=== PATIENT | female | born 1955 | race Two or more races ===

== ENCOUNTER 2025-05-04 07:28 | Inpatient (IN) | payer BC, MEDICAID ==
[~2025-05-04] VITALS: Ht 162.6 cm; Wt 102.3 kg
[2025-05-04] VITALS (8 sets, daily range): BP systolic 98–102; BP diastolic 51–55; PULSE 82–98; RESP 16–22; TEMP 97.8–98.6; O2SAT 90–98
--- NOTE | 2025-05-04 08:12 | ED.PDOC ---
History of Present Illness HPI Comments 69-year-old female who is Wolof-speaking presents to the ER family and with a prior medical history of prediabetic, hypertension in the chief complaint of abdominal pain. Patient reports on having changed her high blood pressure medication, and the patient did not eat 5 days after the medication was changed so they change the back and still has not have an appetite. This whole occasion happened 3 weeks ago in the patient currently has epigastric nausea and diarrhea with bilateral pitting edema. Denies chills, fever, /V, SOB, CP. No other associated symptoms, modifiers, recent injuries or sick contacts present at this time. Chief Complaint: Abdominal Pain Time Seen by MD: 08:00 Reviewed Notes: Nurses Notes, Medications, Allergies Allergies: Coded Allergies: NO KNOWN ALLERGIES (Unverified , 05/04/25) Information Source: Patient, Friend Mode of Arrival: EMS Severity: Moderate Timing: Weeks Duration: Since onset Prehospital treatment: None Past Medical History PAST MEDICAL HISTORY: DM (Prediabetic), HTN Surgical History: Denies all surgeries SAFE AND VAULT INSTALLER History: No Pertinent SAFE AND VAULT INSTALLER History Family History Family History: Reviewed,noncontributory to illness, Unknown Social History Smoker: Non-Smoker Alcohol: Denies ETOH Use Drugs: Denies Drug Use Lives In: Home Constitutional: denies: chills, diaphoresis, fatigue, fever, malaise, sweats, weakness, others EENTM: denies: blurred vision, double vision, ear bleeding, ear discharge, ear drainage, ear pain, ear ringing, eye pain, eye redness, hearing loss, mouth pain, mouth swelling, nasal discharge, nose bleeding, nose congestion, nose pain, photophobia, tearing, throat pain, throat swelling, voice changes, others Respiratory: denies: cough, hemoptysis, orthopnea, SOB at rest, shortness of breath, SOB with excertion, stridor, wheezing, others Cardiovascular: denies: chest pain, dizzy spells, diaphoresis, Dyspnea on exertion, edema, irregular heart beat, left arm pain, lightheadedness, palpit ations, PND, syncope, others Gastrointestinal: reports: abdominal pain, diarrhea, nausea; denies: abdomen distended, blood streaked bowels, constipated, dysphagia, difficulty swallowing, hematemesis, melena, poor appetite, poor fluid intake, rectal bleeding, rectal pain, vomiting, others Genitourinary: denies: abnormal vagina bleeding, burning, dyspareunia, dysuria, flank pain, frequency, hematuria, incontinence, pain, , vagina discharge, urgency, others Neurological: denies: dizziness, fainting, headache, left sided numbness, left sided weakness, numbness, paresthesia, pre-existing deficit, right sided numbness, right sided weakness, seizure, speech problems, tingling, tremors, weakness, others Musculoskeletal: denies: back pain, gout, joint pain, joint swelling, muscle pain, muscle stiffness, neck pain, others Integumetry: denies: bruises, change in color, change in hair/nails, dryness, laceration, lesions, lumps, rash, wounds, others Allergic/Immunocompromised: denies: Difficulty Healing, Frequent Infections, Hives, Itching, others Hematologic/Lymphatic: denies: anemia, blood clots, easy bleeding, easy bruising, swollen glands, others Endocrine: denies: excessive hunger, excessive sweating, excessive thirst, excessive urination, flushing, intolerance to cold, intolerance to heat, unexplained weight gain, unexplained weight loss, others Psychiatric: denies: anxiety, bipolar disorder, depression, hopeless, panic disorder, schizophrenia, sleepless, suicidal, others All Other Systems: Reviewed and Negative Physical Exam General Appearance: Moderate Distress, Normal HEENT: Normal ENT Inspection, Pharynx Normal, TMs Normal Neck: Full Range of Motion, Non-Tender, Normal, Normal Inspection Respiratory: Chest Non-Tender, Lungs Clear, No Accessory Muscle Use, No Respiratory Distress, Normal Breath Sounds Cardiovascular: No Edema, No JVD, No Murmur, No Gallop, Normal Peripheral Pulses, Regular Rate/Rhythm Breast Exam: Deferred Gastrointestinal: No Organomegaly, Non Tender, No Pulsatile Mass, Normal Bowel Sounds, Soft Genitalia: Deferred Pelvic: Deferred Rectal: Deferred Extremities: No calf tenderness, Normal capillary refill, Normal inspection, Normal range of motion, Non-tender, Pedal edema, Swelling (Bilateral lower extremity) Musculoskeletal : Apperance: Normal Neurologic: Alert, senior designer/art director II-XII nml as Tested, No Motor Deficits, Normal Affect, Normal Mood, No Sensory Deficits Cerebellar Function: Normal Reflexes: Normal Skin: Dry, Normal Color, Warm Peripheral Pulses: 3+ Radial (R), 3+ Radial (L) Lymphatic: No Adenopathy Was a procedure done? Was a procedure done?: No Differential Dx Considerations may include: Gastroenteritis Electrolyte imbalance X-Ray, Labs, Meds, VS Vital Signs Date Time Temp Pulse Resp B/P (MAP) Pulse Ox O2 Delivery O2 Flow Rate FiO2 05/04/25 08:06 98 18 98 Room Air* 0 21 05/04/25 07:48 98.3 104 17 98/61 (73) 94 98.3 05/04/25 07:48 104 16 94 Room Air 05/04/25 07:37 98.9 98 18 140/84 (102) 98 98.9 Lab Test 05/04/25 08:13 Range/Units White Blood Count Pending Red Blood Count Pending Hemoglobin Pending Hematocrit Pending Mean Corpuscular Volume Pending Mean Corpuscular Hemoglobin Pending Mean Corpuscular Hemoglobin Concent Pending Red Cell Distribution Width Pending Platelet Count Pending Mean Platelet Volume Pending Neutrophils (%) (Auto) Pending Lymphocytes (%) (Auto) Pending Monocytes (%) (Auto) Pending Basophils (%) (Auto) Pending Neutrophils # (Auto) Pending Lymphocytes # (Auto) Pending Monocytes # (Auto) Pending Sodium Level Pending Potassium Level Pending Chloride Level Pending Carbon Dioxide Level Pending Anion Gap Pending Blood Urea Nitrogen Pending Creatinine Pending Glomerular Filtration Rate Calc Pending BUN/Creatinine Ratio Pending Serum Glucose Pending Calcium Level Pending Total Bilirubin Pending Aspartate Amino Transferase (AST) Pending Alanine Aminotransferase (ALT) Pending Alkaline Phosphatase Pending B-Type Natriuretic Peptide Pending Total Protein Pending Albumin Pending Lipase Pending Patient alert. Complaining of epigastric pain. Vitals stable. Answering questions. Has been having these symptoms for many weeks. Reviewed her history. Abdomen is soft. Bilateral lower extremity edema. Possible CHF. Explained to the family that she will be admitted for further workup. Explained to the patient. Time of 1ST Reevaluation: 08:30 Reevaluation 1ST: Unchanged Patient Education/Counseling: Diagnosis, Treatment, Prognosis Family Education/Counseling: Diagnosis, Treatment, Prognosis SEPSIS Sepsis Screen Date sepsis recognized/suspect: May 04, 2025 Time Sepsis recognized/suspect: 07 Recent Procedure: No On Antibiotic Therapy: No Respiratory Rate >20: No Heart Rate >90: Yes Temp<36 C (96.8 F) or >38.3 C: No SBP <90 or MAP <65 mmHG: No New Acute Mental Status Change: No Is the patient on CPAP, BIPAP,: No Physician Orders Complete Blood Count (05/04/25 08:06) Comprehensive Metabolic Panel (05/04/25 08:06) Lipase (05/04/25 08:06) Urinalysis (05/04/25 08:06) Ct Ab Pel Wo Con-No Oral Or Iv (05/04/25 08:06) B-Type Natriuretic Peptide (05/04/25 08:06) Chest Portable (05/04/25 08:06) Vital Signs Date Time Temp Pulse Resp B/P (MAP) Pulse Ox O2 Delivery O2 Flow Rate FiO2 05/04/25 08:06 98 18 98 Room Air* 0 21 05/04/25 07:48 98.3 104 17 98/61 (73) 94 98.3 05/04/25 07:48 104 16 94 Room Air 05/04/25 07:37 98.9 98 18 140/84 (102) 98 98.9 Laboratory Tests Test 05/04/25 08:13 White Blood Count Pending Departure 1 Departure Time of Disposition: 08:24 Impression: Primary Impression: Acute abdominal pain Additional Impressions: Gastritis Qualified Codes: K29.00 - Acute gastritis without bleeding CHF (congestive heart failure) Qualified Codes: I50.43 - Acute on chronic combined systolic (congestive) and diastolic (congestive) heart failure Disposition: ADMITTED INPATIENT Admit to: Med Surg Condition: Guarded Critical Care Note Critical Care Time?: No Stability Stability form required: No Heart Score Heart Score: Heart Score Response (Comments) Value History Slightly Suspicious 0 EKG Normal 0 Age >65 2 Risk Factors >3 or Hx ASHD 2 Troponin Normal limit 0 Total 4 I personally scribed for JULIO GONZALEZ MD ([email or web address]) on 05/04/25 at 08:12. Electronically submitted by Earl Kinney ([email or web address]). JULIO GONZALEZ MD May 04, 2025 08:12
[2025-05-04 08:26] LABS: Nucleated Red Blood Cells % 0.2 %
[2025-05-04 08:28] LABS: Hematocrit 39.8 % (36.0-46.0); Hemoglobin 13.0 g/dL (12.2-16.2); Mean Corpuscular Hemoglobin 27.0 pg (28.0-32.0); Mean Corpuscular Volume 82.6 fL (80.0-100.0)
[2025-05-04] MEDS: cefTRIAXone 1GM/50ML D5W 50 ML IV ONE (08:30)
[2025-05-04] MEDS: SODIUM CHLORIDE 0.9% 1,000 ML IV ONE ×2 (08:30)
--- NOTE | 2025-05-04 08:43 | DVH ---
CLINICAL INFORMATION: Abdominal pain. TECHNIQUE: Axial CT images of the abdomen and pelvis were obtained without IV contrast. Coronal and s agittal reformatted images were obtained, reviewed, and stored. Evaluation of the parenchymal organs is limited without IV contrast. Evaluation of the bowel and mesentery is limited without oral contras t. All CT scans at this medical facility are performed using dose modulation techniques as appropriat e to a performed exam including the following: Automated exposure control was utilized; adjustment of the MA and/or KV according to patient size; and use of iterative reconstruction technique. CTDIvol = 25.77 mGy DLP = 1409.99 mGy-cm COMPARISON: None FINDINGS: Lung bases: Respiratory motion artifact limits evaluation. Atelectasis in the lung bases. Ground-glas s attenuation in the lung bases may be partly due to respiratory motion artifact. Infectious or infla mmatory etiology not excluded. Dense coronary artery calcification. Liver: Extensive hepatic steatosis. Biliary: Increased density in the gallbladder, possibly sludge. Spleen: Unremarkable. Pancreas: Grossly unremarkable in its noncontrast enhanced appearance. Adrenal glands: Unremarkable. No mass. Kidneys: No hydronephrosis. No renal or ureteral calculi. Aorta/Vascular: Dense calcification. No abdominal aortic aneurysm. Retroperitoneum: No mass or lymphadenopathy. Bowel/mesentery: No small bowel obstruction. No free air or free fluid. Appendix is visualized and ap pears unremarkable. There are a few scattered colonic diverticula without adjacent inflammatory ralph ges to suggest diverticulitis. Pelvic organs: Uterus is surgically absent. Bladder: Underdistended and not well evaluated. Abdominal wall: No mass or hernia. Bones: No acute fracture or suspicious intraosseous lesion. IMPRESSION: 1. Hepatic steatosis. 2. No small bowel obstruction. Normal-appearing appendix. 3. There are a few scattered small colonic diverticula without adjacent inflammatory changes to sugge st diverticulitis. 4. Increased density in the gallbladder, possible sludge. 5. Additional findings as described above.
[2025-05-04 08:46] LABS: Alanine Aminotransferase 20 U/L (7-40); Albumin 4.2 g/dL (3.2-4.8); Alkaline Phosphatase 101 U/L (46-116); Anion Gap 11 (5-15); BUN/Creatinine Ratio 11.6 (10.0-20.0); Bilirubin, Total 1.1 mg/dL (0.2-1.0); Blood Urea Nitrogen 17 mg/dL (9-23); Calcium 9.5 mg/dL (8.7-10.4); Carbon Dioxide 29 mmol/L (20-31); Total Protein 7.0 g/dL (5.7-8.2)
[2025-05-04 08:49] LABS: Chloride 92 mmol/L (98-107); Glucose 119 mg/dL (74-106); Potassium 3.0 mmol/L (3.5-5.1); Sodium 132 mmol/L (136-145)
--- NOTE | 2025-05-04 08:51 | DVH ---
CLINICAL INFORMATION: Shortness of breath. TECHNIQUE: Single AP portable chest radiograph was obtained. COMPARISON: None FINDINGS: Lungs: Mild atelectasis in the lung bases. No focal consolidation visualized. Cardiac: Moderate cardiomegaly. Pulmonary vasculature: Unremarkable. Mediastinum/ori: Unremarkable. Bones: No acute osseous abnormality identified. Other: No other significant findings. IMPRESSION: 1. Moderate cardiomegaly. 2. Mild atelectasis in the lung bases without focal consolidation visualized.
[2025-05-04] MEDS: MORPHINE SULFATE 4 MG/ML SYR/VIAL IV ONE (09:36)
[2025-05-04] MEDS: ONDANSETRON HCL 4 MG/2 ML VIAL IV ONE (09:38)
[2025-05-04 09:39] LABS: Lipase 112 U/L (12-53)
[2025-05-04 09:41] LABS: Urine Protein, UAD Negative (Negative)
[2025-05-04] MEDS ORDERED: MORPHINE SULFATE INJ 2 MG/ml SYRG IV PRN ×2 (11:30→12:15)
[2025-05-04] MEDS ORDERED: HYDROcodone-ACET 5/325MG TAB PO PRN (11:30)
[2025-05-04] MEDS ORDERED: POTASSIUM CHL 20 Meq TABLET PO ONE (11:30)
[2025-05-04] MEDS ORDERED: ACETAMINOPHEN 325 MG TAB PO PRN (11:30)
[2025-05-04] MEDS ORDERED: ONDANSETRON HCL 4 MG/2 ML VIAL IV PRN ×2 (11:30→12:15)
[2025-05-04] MEDS ORDERED: SODIUM CHLORIDE 0.9% 1,000 ML IV SCH (11:30)
--- NOTE | 2025-05-04 12:05 | DVHHP2 ---
History of Present Illness Reason for Visit: Abdominal pain History of Present Illness A 69-year-old Icelandic speaking female presents to the emergency department accompanied by her sister, who assist with translation. She reports a two week history of abdominal pain, primarily located in the epigastric region and left lower quadrant. The pain is associated with nausea, decreased appetite, and nonbloody vomiting, particularly with food intake--most recent occurring last night. She denies fever, chills, hematemesis, melena, or diarrhea. She also endorses chronic right knee pain and bilateral lower extremity swelling that has been no known diagnosis of congestive heart failure. Her past medical history includes prediabetes, hypertension, and chronic bilateral lower extremity edema. A CT scan of abdomen shows scattered small colonic diverticula without inflammatory changes, increased gout bladder density suggestive of sludge, and hepatic steatosis. On physical exam,generalized abdominal tenderness and she has bilateral pitting edema. Laboratory findings reveal creatinine 1.46, GFR 38, sodium 132, potassium 3.0, and total bilirubin 1.1. Urinalysis is positive for leukocyte esterase. Past medical history of prediabetes, hypertension, bilateral lower extremity edema, and right knee pain Past Medical History As stated in HPI Past Surgical History Denies Family History Reviewed, non-contributory to the management of this case. Past Social History The patient lives at home, denies smoking, alcohol or illicit drugs abuse. Review of Systems Constitutional: Yes: Malaise; No: Fever, Chills, Sweats, Weakness, Other Eyes: No: Pain, Vision change, Conjunctivae inflammation, Eyelid inflammation, Other, Redness ENT: No: Ear pain, Ear discharge, Nose pain, Nose discharge, Nose congestion, Mouth pain, Mouth swelling, Throat pain, Throat swelling, Other Respiratory: No: Cough, Dry, Shortness of breath, SOB with excertion, Wheezing, Hemoptysis, Pleuritic Pain, Sputum, Wheezing, Other Cardiovascular: No: Chest Pain, Palpitations, Orthopnea, Paroxysmal Noc. Dyspnea, Edema, Lt Headedness, Other Gastrointestinal: Nausea, Vomiting, Abdominal Pain; No: Diarrhea, Constipation, Melena, Hematochezia, Other Genitourinary: No Dysuria, No Frequency, No Incontinence, No Hematuria, No Retention, No Other Musculoskeletal: No: other, neck pain, shoulder pain, arm pain, back pain, hand pain, leg pain, foot pain Skin: No: Rash, Lesions, Jaundice, Bruising, Other Neurological: No: Weakness, Numbness, Incoordination, Change in speech, Confusion, Seizures, Other Allergies: Coded Allergies: NO KNOWN ALLERGIES (Unverified , 05/04/25) Exam Vital Signs Vital Signs Date Time Temp Pulse Resp B/P (MAP) Pulse Ox O2 Delivery O2 Flow Rate FiO2 05/04/25 12:00 86 05/04/25 11:40 98.4 12 99/48 (65) 97 98.4 05/04/25 09:31 Room Air* 0 21 General Appearance: Alert, Oriented X3, Cooperative, mild distress HEENT: Atraumatic, PERRLA, EOMI Respiratory: Normal air movement Cardiovascular: Normal S1, Other (Bilateral lower extremity edema) Abdominal: Normal bowel sounds, Soft, Other (Generalized tenderness in the abdomen on palpation) Extremities: No clubbing, Other (Bilateral lower extremity +2 pitting edema) Skin: No rashes, No breakdown Neuro: Normal tone Psych/Mental Status: Mental status NL Labs/Xrays Labs Test 05/04/25 09:09 05/04/25 08:48 05/04/25 08:13 Range/Units Urine Color Yellow Yellow Urine Clarity Turbid H Clear Urine pH 6.5 5.0-9.0 Urine Specific [place] 1.009 1.001-1.035 Urine Protein Negative Negative Urine Ketones Negative Negative Urine Blood Negative Negative /uL Urine Nitrite Negative Negative Urine Bilirubin Negative Negative Urine Urobilinogen Normal Negative mg/dL Urine Leukocyte Esterase 3+ Negative /uL Urine RBC 1 0 - 4 /hpf Urine Microscopic WBC 41 H 0-5 /HPF Urine Squamous Epithelial Cells Few <5 /hpf Urine Bacteria Few H None Seen /hpf Urine Glucose Normal Normal mg/dL Lactic Acid Level 1.4 0.4-2.0 mmol/L White Blood Count 6.6 4.4-10.8 10^3/uL Red Blood Count 4.82 4.0-5.20 10^6/uL Hemoglobin 13.0 12.2-16.2 g/dL Hematocrit 39.8 36.0-46.0 % Mean Corpuscular Volume 82.6 80.0-100.0 fL Mean Corpuscular Hemoglobin 27.0 L 28.0-32.0 pg Mean Corpuscular Hemoglobin Concent 32.8 32.0-36.0 g/dL Red Cell Distribution Width 18.6 H 11.8-14.3 % Platelet Count 513 H 140-450 10^3/uL Mean Platelet Volume 8.3 6.9-10.8 fL Neutrophils (%) (Auto) 51.3 37.0-80.0 % Lymphocytes (%) (Auto) 33.4 10.0-50.0 % Monocytes (%) (Auto) 8.5 0.0-12.0 % Eosinophils (%) (Auto) 4.9 0.0-7.0 % Basophils (%) (Auto) 1.9 0.0-2.0 % Neutrophils # (Auto) 3.4 1.6-8.6 10 ^3/uL Lymphocytes # (Auto) 2.2 0.4-5.4 10 ^3/uL Monocytes # (Auto) 0.6 0-1.3 10 ^3/uL Eosinophils # (Auto) 0.3 0-0.8 10 ^3/uL Basophils # (Auto) 0.1 0-0.2 10 ^3/uL Nucleated Red Blood Cells 0.2 % Sodium Level 132 L 136-145 mmol/L Potassium Level 3.0 L 3.5-5.1 mmol/L Chloride Level 92 L 98-107 mmol/L Carbon Dioxide Level 29 20-31 mmol/L Anion Gap 11 5-15 Blood Urea Nitrogen 17 9-23 mg/dL Creatinine 1.46 H 0.550-1.02 mg/dL Glomerular Filtration Rate Calc 38 >90 mL/min BUN/Creatinine Ratio 11.6 10.0-20.0 Serum Glucose 119 H 74-106 mg/dL Calcium Level 9.5 8.7-10.4 mg/dL Total Bilirubin 1.1 H 0.2-1.0 mg/dL Aspartate Amino Transferase (AST) 32 13-40 U/L Alanine Aminotransferase (ALT) 20 7-40 U/L Alkaline Phosphatase 101 46-116 U/L Troponin I High Sensitivity 4 </=34 ng/L B-Type Natriuretic Peptide 46.17 0-100 pg/mL Total Protein 7.0 5.7-8.2 g/dL Albumin 4.2 3.2-4.8 g/dL Lipase 112 H 12-53 U/L PROCEDURE(s): ABPL - CT AB PEL WO CON-NO ORAL OR IV REASON: sob ORDER NUMBER(s): [id number], ACCESSION NUMBER(s): [id number] CLINICAL INFORMATION: Abdominal pain. TECHNIQUE: Axial CT images of the abdomen and pelvis were obtained without IV contrast. Coronal and sagittal reformatted images were obtained, reviewed, and stored. Evaluation of the parenchymal organs is limited without IV contrast. Evaluation of the bowel and mesentery is limited without oral contrast. All CT scans at this medical facility are performed using dose modulation techniques as appropriate to a performed exam including the following: Automated exposure control was utilized; adjustment of the MA and/or KV according to patient size; and use of iterative reconstruction technique. CTDIvol = 25.77 mGy DLP = 1409.99 mGy-cm COMPARISON: None FINDINGS: Lung bases: Respiratory motion artifact limits evaluation. Atelectasis in the lung bases. Ground-glass attenuation in the lung bases may be partly due to respiratory motion artifact. Infectious or inflammatory etiology not excluded. Dense coronary artery calcification. Liver: Extensive hepatic steatosis. Biliary: Increased density in the gallbladder, possibly sludge. Spleen: Unremarkable. Pancreas: Grossly unremarkable in its noncontrast enhanced appearance. Adrenal glands: Unremarkable. No mass. Kidneys: No hydronephrosis. No renal or ureteral calculi. Aorta/Vascular: Dense calcification. No abdominal aortic aneurysm. Retroperitoneum: No mass or lymphadenopathy. Bowel/mesentery: No small bowel obstruction. No free air or free fluid. Appendix is visualized and appears unremarkable. There are a few scattered colonic diverticula without adjacent inflammatory changes to suggest diverticulitis. Pelvic organs: Uterus is surgically absent. Bladder: Underdistended and not well evaluated. Abdominal wall: No mass or hernia. Bones: No acute fracture or suspicious intraosseous lesion. IMPRESSION: 1. Hepatic steatosis. 2. No small bowel obstruction. Normal-appearing appendix. 3. There are a few scattered small colonic diverticula without adjacent inflammatory changes to suggest diverticulitis. 4. Increased density in the gallbladder, possible sludge. 5. Additional findings as described above. Assessment/Plan Assessment/Plan # acute abdominal pain likely due to possible diverticulitis vs gastritis vs gastroenteritis # rule out cholecystitis # hepatic steatosis * Admit to medical unit * CT of abdomen shows scattered colonic diverticula without signs of diverticulitis, gall bladder sludge, hepatic steatosis * Empiric antibiotic * Clear liquid diet * Soft IV fluid for hydration * Antiemetic * Gallbladder ultrasound pending # suspected acute UTI * Urine culture * Empiric antibiotic # JONATHAN on CKD 3 B * Hold nephrotoxic medications maintain hydration with Soft IV fluid * Monitor kidney function # hypokalemia and hyponatremia * Likely due to poor intake, vomiting and volume depletion * Repleted potassium * Monitor sodium and fluid balance # cardiomegaly # bilateral lower extremity edema # rule out congestive heart failure * Echocardiogram * Consider cardiology consult pending echo results * IV diuresis * Daily weight, strict intake and output # hypertension * Monitor given soft BP # prediabetes # obesity * Check A1c # left knee pain Pain control Physical therapy as needed DVT prophylaxis Medical plan discussed with patient, sister, and RN Plan discussed with: Patient Date of Service: May 04, 2025 Billing Provider: NASH KIRBY Common Visit Codes: 47034-WAGFCAT INP/OBS CARE (HIGH) Consultation Codes: 83464-XHHCHJMXF CONSULT <45MIN NASH KIRBY May 04, 2025 12:05
[2025-05-04] MEDS: SODIUM CHLORIDE 0.9% 1,000 ML IV SCH (12:15)
--- NOTE | 2025-05-04 13:21 | DVH ---
EXAM: US GALLBLADDER CLINICAL HISTORY: abd pain, bladder sludge TECHNIQUE: Grayscale and limited color flow doppler ultrasound of the right upper quadrant is perfor med. COMPARISON: None Findings: Liver measures 17.9 cm in length with increased echotexture and contour. No evidence of focal hepatic lesions or intra- or extrahepatic ductal dilatation. Common bile duct measures 0.4 cm in diameter. N ormal hepatopedal flow noted within the portal vein. No perihepatic free fluid is noted. Gallbladder appears within normal limits with gallbladder wall thickness measuring 0.2 cm. No evidenc e of shadowing calculi, biliary sludge or pericholecystic fluid. Negative sonographic Ambrocio's sign. Pancreas only partially visualized due to overlying bowel gas with mild increased echogenicity. Right kidney measures 9.7 cm with normal contours, increased echotexture and normal cortical thicknes s. No evidence of hydronephrosis, calculi, cystic or solid renal lesions. Partially visualized inferior vena cava unremarkable. Impression: 1. No evidence of acute right upper quadrant abnormalities. 2. Hepatomegaly with hepatic steatosis. 3. Increased echogenicity of the right kidney. Correlate for medical renal disease.
[2025-05-04] MEDS: FUROSEMIDE 20 MG/2 ML VIAL IV ONE (14:30)
[2025-05-04] MEDS: POTASSIUM CHL 20 Meq TABLET PO ONE (15:46)
[2025-05-04] MEDS: PANTOPRAZOLE 40 MG/10 ML VIAL INJ IV ONE (15:46)
--- NOTE | 2025-05-04 16:07 | DVHSR ---
APPROVED REPORT EXAM: LIMITED Two-dimensional and M-mode echocardiogram with Doppler and color Doppler. Blood Pressure: 99/48 mmHg INDICATION Edema RISK FACTORS Obesity: Height: 5' 4", Weight: 211 DIMENSIONS LVDd3.5 (3.8-5.7cm)LA (2D)3.2 (1.9-4.0cm)Aortic Root3.2 (2.0-3.7cm) LVDs2.5 (2.5-4.0cm)LA (MM) (1.9-4.0cm)Aortic Cusp Exc2.1 (1.5-2.0cm) EF (%) 55.0 (55-70%)Rt. Atrium3.0 (1.9-4.0cm)Asc. Aorta cm IVSd1.1 (0.7-1.1cm)RV (D) (1.8-2.4cm) PWd1.0 (0.7-1.1cm) Mitral Valve MitralMitral Stenosis E wave1.10m/sMV Mean GR.mmHg A wave1.20m/sMV Peak GR.mmHg E/A ratio0.92D MVAcm2 Aortic Valve Aortic ValveAortic Stenosis V11.30m/Thierry Mean GR.7mmHg V21.70m/Thierry Peak GR.12mmHg LVOT Diameter2.4 (1.8-2.4cm)Doppler AVA3.46cm2 Tricuspid Valve TR Velocity2.90m/s [id number] Other Information Quality : Technically LimitedRhythm : Technically limited study due to body habitus. Conclusion lvef 55% moderate LVH normal rv function, RV enlarged no severe valve abnormalities noted
[2025-05-04] MEDS: ACETAMINOPHEN 325 MG TAB PO PRN (19:45)
[2025-05-04] MEDS ORDERED: HYDR25TA4 PO (22:36)
[2025-05-04] MEDS ORDERED: FURO40TA4 PO (22:39)
[2025-05-04] MEDS ORDERED: ATOR20TA50 PO (22:39)
[2025-05-04] MEDS ORDERED: MECL-90 PO (22:39)
[2025-05-04] MEDS ORDERED: METF-370 PO (22:39)
[2025-05-05] VITALS (8 sets, daily range): BP systolic 96–117; BP diastolic 51–65; PULSE 72–97; RESP 16–20; TEMP 97.6–98.7; O2SAT 94–100
[2025-05-05 06:17] LABS: Hematocrit 32.9 % (36.0-46.0); Hemoglobin 10.6 g/dL (12.2-16.2); Mean Corpuscular Hemoglobin 27.2 pg (28.0-32.0); Mean Corpuscular Volume 84.0 fL (80.0-100.0); Nucleated Red Blood Cells % 0.2 %
[2025-05-05 06:33] LABS: Alanine Aminotransferase 15 U/L (7-40); Albumin 3.3 g/dL (3.2-4.8); Alkaline Phosphatase 77 U/L (46-116); Anion Gap 11 (5-15); BUN/Creatinine Ratio 10.2 (10.0-20.0); Blood Urea Nitrogen 10 mg/dL (9-23); Carbon Dioxide 23 mmol/L (20-31); Chloride 103 mmol/L (98-107); Glucose 97 mg/dL (74-106); Sodium 137 mmol/L (136-145)
[2025-05-05 06:34] LABS: Bilirubin, Total 0.7 mg/dL (0.2-1.0)
[2025-05-05 06:35] LABS: Calcium 8.6 mg/dL (8.7-10.4); Potassium 2.7 mmol/L (3.5-5.1); Total Protein 5.6 g/dL (5.7-8.2)
[2025-05-05] MEDS ORDERED: cefTRIAXone 1GM/50ML D5W 50 ML IV SCH (09:00)
[2025-05-05] MEDS: PANTOPRAZOLE 40 MG/10 ML VIAL INJ IV SCH (09:59)
[2025-05-05] MEDS: cefTRIAXone 1GM/50ML D5W 50 ML IV SCH (09:59)
[2025-05-05] MEDS: POTASSIUM CHL 20 Meq TABLET PO SCH (10:00)
[2025-05-05] MEDS: ENOXAPARIN SOD 40 MG/0.4 ML SYRINGE SC SCH (10:00)
[2025-05-05] MEDS: FUROSEMIDE 20 MG/2 ML VIAL IV SCH (10:00)
[2025-05-05] MEDS ORDERED: ENOXAPARIN SOD 40 MG/0.4 ML SYRINGE SC SCH (10:00)
[2025-05-05] MEDS: POTASSIUM CHL 20 Meq TABLET PO ONE (10:05)
[2025-05-05 11:50] LABS: Potassium 3.4 mmol/L (3.5-5.1)
[2025-05-05 11:55] LABS: Magnesium 1.7 mg/dL (1.6-2.6)
--- NOTE | 2025-05-05 12:22 | DVHPN2 ---
Reviewed: Care Plan, H&P, Labs, Medications, Previous Orders, Radiology Changes from previous H/P or p: No Changes Eyes: No Pain, No Vision change, No Conjunctivae inflammation, No Eyelid inflammation, No Other, No Redness ENT: No Ear pain, No Ear discharge, No Nose pain, No Nose discharge, No Nose congestion, No Mouth pain, No Mouth swelling, No Throat pain, No Throat swelling, No Other Cardiovascular: No Chest Pain, No Palpitations, No Orthopnea, No Paroxysmal Noc. Dyspnea, No Edema, No Lt Headedness, No Other Respiratory: No Cough, No Dry, No Shortness of breath, No SOB with excertion, No Wheezing, No Hemoptysis, No Pleuritic Pain, No Sputum, No Other Gastrointestinal: Nausea, Vomiting, Abdominal Pain; No Diarrhea, No Constipation, No Melena, No Hematochezia, No Other Genitourinary: No Dysuria, No Frequency, No Incontinence, No Hematuria, No Retention, No Other Musculoskeletal: No other, No neck pain, No shoulder pain, No arm pain, No back pain, No hand pain, No leg pain, No foot pain Skin: No Rash, No Lesions, No Jaundice, No Bruising, No Other Objective Vitals Vital Signs Date Time Temp Pulse Resp B/P (MAP) Pulse Ox O2 Delivery O2 Flow Rate FiO2 05/05/25 10:00 100/65 05/05/25 08:30 98.0 72 18 99 98.0 05/04/25 20:00 Room Air* 0 21 Intake/Output Intake and Output 05/05/25 07:00 Intake Total 820 ml Balance 820 ml Intake Oral 720 ml IV Total 100 ml # Voids 4 Medications Current Medications Medications Dose Ordered Sig/Estefany Route Start Time Stop Time Status Last Admin Dose Admin Furosemide 20 mg DAILY IV 05/05/25 10:00 Potassium Chloride 20 meq DAILY PO 05/05/25 10:00 Pantoprazole Sodium 40 mg DAILY IV 05/05/25 10:00 05/05/25 09:59 40 MG Ondansetron HCl 4 mg Q4HP PRN IV 05/04/25 12:15 Enoxaparin Sodium 40 mg DAILY SC 05/05/25 10:00 05/05/25 10:00 40 MG Morphine Sulfate 2 mg Q4HPRN PRN IV 05/04/25 12:15 Ceftriaxone Sodium 50 ml @ 100 mls/hr DAILY@09 IV 05/05/25 09:00 05/05/25 09:59 100 MLS/HR Metronidazole 100 ml @ 100 mls/hr Q8HR IV 05/04/25 14:00 05/05/25 04:57 100 MLS/HR Sodium Chloride 1,000 ml @ 75 mls/hr [id number] IV 05/04/25 12:15 05/05/25 04:57 75 MLS/HR Acetaminophen/ Hydrocodone Bitart 1 tab Q4HP PRN PO 05/04/25 12:15 Acetaminophen 650 mg Q6HP PRN PO 05/04/25 12:15 05/04/25 19:45 650 MG Laboratory Results Laboratory Tests 05/05/25 05:33 05/05/25 10:50 Chemistry Test 05/05/25 05:33 05/05/25 10:50 Albumin 3.3 g/dL (3.2-4.8) Calcium Level 8.6 mg/dL (8.7-10.4) L Total Protein 5.6 g/dL (5.7-8.2) L Magnesium Level 1.7 mg/dL (1.6-2.6) LFT Test 05/05/25 05:33 Alanine Aminotransferase (ALT) 15 U/L (7-40) Alkaline Phosphatase 77 U/L (46-116) Aspartate Amino Transferase (AST) 26 U/L (13-40) Total Bilirubin 0.7 mg/dL (0.2-1.0) Urinalysis Test 05/04/25 09:09 Urine Color Yellow (Yellow) Urine Clarity Turbid (Clear) H Urine pH 6.5 (5.0-9.0) Urine Specific [place] 1.009 (1.001-1.035) Urine Protein Negative (Negative) Urine Ketones Negative (Negative) Urine Blood Negative /uL (Negative) Urine Nitrite Negative (Negative) Urine Bilirubin Negative (Negative) Urine Urobilinogen Normal mg/dL (Negative) Urine Leukocyte Esterase 3+ /uL (Negative) Urine RBC 1 /hpf (0 - 4) Urine Microscopic WBC 41 /HPF (0-5) H Urine Squamous Epithelial Cells Few /hpf (<5) Urine Bacteria Few /hpf (None Seen) H Urine Glucose Normal mg/dL (Normal) Microbiology Microbiology Date/Time Source Procedure Growth Status 05/04/25 08:48 Blood Blood Culture - Preliminary NO GROWTH AFTER 24 HOURS OF INCUBATION. Resulted Labs and/or images reviewed: Labs reviewed by me, Image(s) reviewed by me Assessment/Plan Assessment/Plan Acute abdominal pain possibly secondary to diverticulitis: Rocephin Flagyl Cholelithiasis, cholecystitis ruled out Hepatic steatosis UTI: Blood cultures negative urine cultures pending Rocephin JONATHAN on CKD Acute type hypokalemia: Replace potassium Hypertension Obesity Time Spent 55 minutes Advanced care planning time 20 minutes Patient is full code Plan discussed with: Patient Date of Service: May 05, 2025 Billing Provider: ROSELINE EASTMAN MD Common Visit Codes: [id number] INP/OBS CARE(HIGH) Secondary Visit Codes: [id number] CARE PLAN 30 MINUTES ROSELINE EASTMAN MD May 05, 2025 12:22
[2025-05-05] MEDS: HYDROcodone-ACET 5/325MG TAB PO PRN (21:40)
--- NOTE | 2025-05-05 23:03 | DVHINCON2 ---
Date of service: May 05, 2025 Referring Physician Ralph Eller Reason for Consultation Epigastric pain History of Present Illness A 69-year-old [place] lady reports a two week history of abdominal pain, primarily located in the epigastric region . She denied any left lower quadrant pain to me at this time. The pain is associated with nausea, decreased appetite, and nonbloody vomiting, particularly with food intake--most recent occurring last night. She denies fever, chills, hematemesis, melena, or diarrhea. She also endorses chronic right knee pain and bilateral lower extremity swelling that has previous known diagnosis of congestive heart failure. A CT scan of abdomen shows scattered small colonic diverticula without inflammatory changes, increased gout bladder density suggestive of sludge, and hepatic steatosis. On physical exam,generalized abdominal tenderness and she has bilateral pitting edema. Laboratory findings reveal creatinine 1.46, GFR 38, sodium 132, potassium 3.0, and total bilirubin 1.1. Urinalysis is positive for leukocyte esterase. Past medical history of prediabetes, hypertension, bilateral lower extremity edema, and right knee pain Past Medical History Her past medical history includes prediabetes, hypertension, and chronic bilateral lower extremity edema. Morbid obesity Past Surgical History Negative Family History: Diabetes mellitus G8 MOTHER, Onset:30s - 40 Hypertension G8 FATHER, Onset:50's - 60 Allergies: Coded Allergies: NO KNOWN ALLERGIES (Unverified , 05/04/25) Home Meds Reported Medications Metformin Hydrochloride (Metformin Hcl) 500 Mg Tab, 500 MG PO DAILY, MG 05/04/25 Meclizine Hcl (Meclizine Hcl) 25 Mg Tab, 25 MG PO HSPRN for 30 Days, MG 05/04/25 Atorvastatin Calcium (ATORVASTATIN CALCIUM) 20 Mg Tab, 1 TAB PO HS, TAB 5 Refills 05/04/25 Furosemide (Furosemide) 40 Mg Tab, 40 MG PO DAILY 05/04/25 Hydrochlorothiazide (Hydrochlorothiazide) 25 Mg Tab, 25 MG PO DAILY for 30 Days, MG 05/04/25 Current Medications Current Medications Medications (Trade) Dose Ordered Sig/Estefany Route PRN Reason Start Time Stop Time Status Last Admin Enoxaparin Sodium (Lovenox) 40 mg DAILY SC 05/05/25 10:00 05/04/25 12:09 DC Ceftriaxone Sodium 50 ml @ 100 mls/hr DAILY@ IV 05/05/25 09:00 05/04/25 12:09 DC Furosemide (Lasix Injection) 20 mg DAILY IV 05/05/25 10:00 Potassium Chloride (Klor-Con Tablet) 20 meq DAILY PO 05/05/25 10:00 Pantoprazole Sodium (Protonix) 40 mg DAILY IV 05/05/25 10:00 05/05/25 09:59 Enoxaparin Sodium (Lovenox) 40 mg DAILY SC 05/05/25 10:00 05/05/25 10:00 Ceftriaxone Sodium 50 ml @ 100 mls/hr DAILY@09 IV 05/05/25 09:00 05/05/25 09:59 Vital Signs Vital Signs Date Time Temp Pulse Resp B/P (MAP) Pulse Ox O2 Delivery O2 Flow Rate FiO2 05/05/25 21:00 98.0 77 16 117/62 (80) 95 98.0 05/05/25 20:00 Room Air* 0 21 Labs/Diagnostic Data Labs Test 05/05/25 10:50 05/05/25 05:33 05/04/25 09:09 05/04/25 08:48 Range/Units Potassium Level 3.4 L 3.5-5.1 mmol/L Magnesium Level 1.7 1.6-2.6 mg/dL White Blood Count 5.9 4.4-10.8 10^3/uL Red Blood Count 3.91 L 4.0-5.20 10^6/uL Hemoglobin 10.6 #L 12.2-16.2 g/dL Hematocrit 32.9 #L 36.0-46.0 % Mean Corpuscular Volume 84.0 80.0-100.0 fL Mean Corpuscular Hemoglobin 27.2 L 28.0-32.0 pg Mean Corpuscular Hemoglobin Concent 32.4 32.0-36.0 g/dL Red Cell Distribution Width 18.4 H 11.8-14.3 % Platelet Count 439 140-450 10^3/uL Mean Platelet Volume 8.2 6.9-10.8 fL Neutrophils (%) (Auto) 52.2 37.0-80.0 % Lymphocytes (%) (Auto) 32.7 10.0-50.0 % Monocytes (%) (Auto) 10.0 0.0-12.0 % Eosinophils (%) (Auto) 4.7 0.0-7.0 % Basophils (%) (Auto) 0.4 0.0-2.0 % Neutrophils # (Auto) 3.1 1.6-8.6 10 ^3/uL Lymphocytes # (Auto) 1.9 0.4-5.4 10 ^3/uL Monocytes # (Auto) 0.6 0-1.3 10 ^3/uL Eosinophils # (Auto) 0.3 0-0.8 10 ^3/uL Basophils # (Auto) 0 0-0.2 10 ^3/uL Nucleated Red Blood Cells 0.2 % Sodium Level 137 # 136-145 mmol/L Chloride Level 103 # 98-107 mmol/L Carbon Dioxide Level 23 20-31 mmol/L Anion Gap 11 5-15 Blood Urea Nitrogen 10 9-23 mg/dL Creatinine 0.98 # 0.550-1.02 mg/dL Glomerular Filtration Rate Calc 62 >90 mL/min BUN/Creatinine Ratio 10.2 10.0-20.0 Serum Glucose 97 74-106 mg/dL Calcium Level 8.6 L 8.7-10.4 mg/dL Total Bilirubin 0.7 0.2-1.0 mg/dL Aspartate Amino Transferase (AST) 26 13-40 U/L Alanine Aminotransferase (ALT) 15 7-40 U/L Alkaline Phosphatase 77 46-116 U/L Total Protein 5.6 L 5.7-8.2 g/dL Albumin 3.3 3.2-4.8 g/dL Urine Color Yellow Yellow Urine Clarity Turbid H Clear Urine pH 6.5 5.0-9.0 Urine Specific [place] 1.009 1.001-1.035 Urine Protein Negative Negative Urine Ketones Negative Negative Urine Blood Negative Negative /uL Urine Nitrite Negative Negative Urine Bilirubin Negative Negative Urine Urobilinogen Normal Negative mg/dL Urine Leukocyte Esterase 3+ Negative /uL Urine RBC 1 0 - 4 /hpf Urine Microscopic WBC 41 H 0-5 /HPF Urine Squamous Epithelial Cells Few <5 /hpf Urine Bacteria Few H None Seen /hpf Urine Glucose Normal Normal mg/dL Lactic Acid Level 1.4 0.4-2.0 mmol/L Test 05/04/25 08:13 Range/Units Hemoglobin A1c 6.2 H <5.7 % A1C Troponin I High Sensitivity 4 </=34 ng/L B-Type Natriuretic Peptide 46.17 0-100 pg/mL Lipase 112 H 12-53 U/L Microbiology Date/Time Source Procedure Growth Status 05/04/25 09:09 Voided Urine Urine Culture - Preliminary Resulted 05/04/25 08:48 Blood Blood Culture - Preliminary NO GROWTH AFTER 24 HOURS OF INCUBATION. Resulted RUQ USG Impression: 1. No evidence of acute right upper quadrant abnormalities. 2. Hepatomegaly with hepatic steatosis. 3. Increased echogenicity of the right kidney. Correlate for medical renal disease. CT scan abdomen pelvis IMPRESSION: 1. Hepatic steatosis. 2. No small bowel obstruction. Normal-appearing appendix. 3. There are a few scattered small colonic diverticula without adjacent inflammatory changes to suggest diverticulitis. 4. Increased density in the gallbladder, possible sludge. 5. Additional findings as described above. Problems(with codes): (1) Acute pancreatitis (2) CHF (congestive heart failure) (3) Gastritis (4) Acute abdominal pain Plan/Recommendation Plan IV Protonix 40 mg daily Possible endoscopy on 05/06/2025 Repeat labs including lipase level Ultrasound shows no evidence of cholelithiasis or cholecystitis Discontinue alcohol smoking fatty foods Outpatient follow up with GI Services to discuss elective colonoscopy and ongoing management and observation Plan discussed with: Patient ANDREA KELLY MD May 05, 2025 23:03
[2025-05-06] VITALS (10 sets, daily range): BP systolic 94–125; BP diastolic 52–76; PULSE 73–91; RESP 15–20; TEMP 97.7–98.1; O2SAT 92–97
--- NOTE | 2025-05-06 06:39 | DVH ---
CHEST RADIOGRAPH Indication: Pt. procedure Technique: Single frontal view of the chest was obtained COMPARISON: XY CHEST PORTABLE on DOS: 05/04/25 FINDINGS: Lines and Tubes: None Lungs: Diffuse increased prominence of the pulmonary vasculature and bibasilar pulmonary airspace dis ease. Pleura: Small bilateral pleural effusions are not excluded. No pneumothorax. Cardiomediastinal contours: Cardiomegaly. Bones: Unremarkable IMPRESSION: 1. Diffuse increased prominence of the pulmonary vasculature and bibasilar pulmonary airspace disease . Small bilateral pleural effusions are not excluded. 2. Cardiomegaly.
[2025-05-06 07:03] LABS: INR 0.97 (0.9-1.15); Partial Thromboplastin Time < 20.0 SEC (24.5-34.5); Prothrombin Time 10.3 sec (9.3-11.8)
--- NOTE | 2025-05-06 07:47 | ECG ---
[facility] Test Date: 2025-05-06 Test Time: 07:21:04 Pat Name: EMILI VIRK Department: Room: 0290 A Gender: F [employer] Detailer: ELLEN ODELL LVN : 1955 Requested By: ROSELINE EASTMAN Order Number: [id number] Reading MD: Elmo Sims Measurements Intervals [place] Rate: 88 P: 15 [place]: 175 QRS: 15 QRSD: 91 T: 28 QT: 361 QTc: 437 Interpretive Statements Sinus rhythm Low voltage, precordial leads Electronically Signed On 05-08-2025 19:17:28 PDT by Elmo Sims Please click the below link to view image of tracing.
--- NOTE | 2025-05-06 12:58 | DVHPN2 ---
Reviewed: Care Plan, H&P, Labs, Medications, Previous Orders, Radiology Changes from previous H/P or p: No Changes Eyes: No Pain, No Vision change, No Conjunctivae inflammation, No Eyelid inflammation, No Other, No Redness ENT: No Ear pain, No Ear discharge, No Nose pain, No Nose discharge, No Nose congestion, No Mouth pain, No Mouth swelling, No Throat pain, No Throat swelling, No Other Cardiovascular: No Chest Pain, No Palpitations, No Orthopnea, No Paroxysmal Noc. Dyspnea, No Edema, No Lt Headedness, No Other Respiratory: No Cough, No Dry, No Shortness of breath, No SOB with excertion, No Wheezing, No Hemoptysis, No Pleuritic Pain, No Sputum, No Other Gastrointestinal: Nausea, Vomiting, Abdominal Pain; No Diarrhea, No Constipation, No Melena, No Hematochezia, No Other Genitourinary: No Dysuria, No Frequency, No Incontinence, No Hematuria, No Retention, No Other Musculoskeletal: No other, No neck pain, No shoulder pain, No arm pain, No back pain, No hand pain, No leg pain, No foot pain Skin: No Rash, No Lesions, No Jaundice, No Bruising, No Other Objective Vitals Vital Signs Date Time Temp Pulse Resp B/P (MAP) Pulse Ox O2 Delivery O2 Flow Rate FiO2 05/06/25 08:00 97.7 79 18 116/70 (85) 96 97.7 05/06/25 07:50 Room Air* 0 21 Intake/Output Intake and Output 05/06/25 07:00 Intake Total 1550 ml Output Total 800 ml Balance 750 ml Intake Oral 1400 ml IV Total 150 ml Output Urine Total 800 ml # Voids 2 Medications Current Medications Medications Dose Ordered Sig/Estefany Route Start Time Stop Time Status Last Admin Dose Admin Furosemide 20 mg DAILY IV 05/05/25 10:00 Potassium Chloride 20 meq DAILY PO 05/05/25 10:00 05/06/25 09:17 20 MEQ Pantoprazole Sodium 40 mg DAILY IV 05/05/25 10:00 05/06/25 09:16 40 MG Ondansetron HCl 4 mg Q4HP PRN IV 05/04/25 12:15 Enoxaparin Sodium 40 mg DAILY SC 05/05/25 10:00 05/05/25 10:00 40 MG Morphine Sulfate 2 mg Q4HPRN PRN IV 05/04/25 12:15 Ceftriaxone Sodium 50 ml @ 100 mls/hr DAILY@09 IV 05/05/25 09:00 05/06/25 09:18 100 MLS/HR Metronidazole 100 ml @ 100 mls/hr Q8HR IV 05/04/25 14:00 05/06/25 05:02 100 MLS/HR Sodium Chloride 1,000 ml @ 75 mls/hr [id number] IV 05/04/25 12:15 05/06/25 04:14 75 MLS/HR Acetaminophen/ Hydrocodone Bitart 1 tab Q4HP PRN PO 05/04/25 12:15 05/05/25 21:40 1 TAB Acetaminophen 650 mg Q6HP PRN PO 05/04/25 12:15 05/05/25 13:58 650 MG Laboratory Results Laboratory Tests 05/05/25 05:33 05/05/25 10:50 Coagulation Test 05/06/25 06:17 Prothrombin Time 10.3 sec (9.3-11.8) Prothrombin Time INR 0.97 (0.9-1.15) Activated Partial Thromboplast Time < 20.0 SEC (24.5-34.5) L Urinalysis Test 05/04/25 09:09 Urine Color Yellow (Yellow) Urine Clarity Turbid (Clear) H Urine pH 6.5 (5.0-9.0) Urine Specific [place] 1.009 (1.001-1.035) Urine Protein Negative (Negative) Urine Ketones Negative (Negative) Urine Blood Negative /uL (Negative) Urine Nitrite Negative (Negative) Urine Bilirubin Negative (Negative) Urine Urobilinogen Normal mg/dL (Negative) Urine Leukocyte Esterase 3+ /uL (Negative) Urine RBC 1 /hpf (0 - 4) Urine Microscopic WBC 41 /HPF (0-5) H Urine Squamous Epithelial Cells Few /hpf (<5) Urine Bacteria Few /hpf (None Seen) H Urine Glucose Normal mg/dL (Normal) Microbiology Microbiology Date/Time Source Procedure Growth Status 05/04/25 09:09 Voided Urine Urine Culture - Final Escherichia coli Complete 05/04/25 08:48 Blood Blood Culture - Preliminary NO GROWTH AFTER 48 HOURS OF INCUBATION. Resulted Labs and/or images reviewed: Labs reviewed by me, Image(s) reviewed by me Assessment/Plan Assessment/Plan Acute abdominal pain possibly secondary to diverticulitis: Rocephin Flagyl GI consult by Dr. Aris Hale appreciated Cholelithiasis, cholecystitis ruled out Hepatic steatosis UTI: Blood cultures negative urine cultures growing E coli, continue Rocephin JONATHAN on CKD Acute type hypokalemia: Replace potassium Hypertension Acute Pancreatitis lipase 112 Obesity Time Spent 55 minutes Advanced care planning time 20 minutes Patient is full code Plan discussed with: Patient Date of Service: May 06, 2025 Billing Provider: ROSELINE EASTMAN MD Common Visit Codes: [id number] INP/OBS CARE(HIGH) ROSELINE EASTMAN MD May 06, 2025 12:58
[2025-05-06] MEDS ORDERED: SODIUM CHLORIDE LOCK 10 ML ONE (15:31)
[2025-05-06] MEDS: LIDOCAINE VISCOUS 2% 15ML UD ONE (16:12)
[2025-05-06] MEDS: diphenhdrAMINE HCL 50 MG/1 ML VL ONE (16:13)
[2025-05-06] MEDS: MIDAZOLAM HCL 5 MG/ML-1ML VIAL ONE (16:13)
[2025-05-06] MEDS: fentaNYL CITRATE 100 MCG/2 ML VL ONE (16:13)
--- NOTE | 2025-05-06 17:02 | DVHOP2 ---
Operative Report DATE OF OPERATION: 05/06/25 PROCEDURE: Upper Endoscopy with biopsy. PREOPERATIVE INDICATION: The patient is a 69 -year-old female undergoing endoscopy for epigastric pain POSTOPERATIVE DIAGNOSES: 1. [id number] antral gastritis with superficial erosions PROCEDURE PERFORMED BY: Andrea Hale GI NURSE: Renee SCOPE: Olympus videoendoscope. ASA CLASS: 3. PREOPERATIVE MEDICATIONS: Versed 3 mg, Fentanyl 75 mcg, Benadryl 50 mg I administered moderate sedation throughout this _9_ minutes procedure. An independent trained observer pushed medications at my direction, and monitored the patient's level of consciousness and physiological status throughout. PROCEDURE IN DETAIL: After obtaining an informed consent, the patient was placed on left lateral decubitus position. The patient was then sedated with the above medications. A bite block was placed between her teeth. The endoscope was then passed through the oropharynx, into the esophagus, and through the stomach and pylorus up to the second and third part of the duodenum. The endoscope was then withdrawn. Second and 3rd part of the duodenum and the duodenal bulb were normal. Duodenal biopsies were obtained. The pre-pyloric area antrum and body showed [id number] gastritis with some superficial erosions. Gastric biopsies were obtained. On retroflexion the fundus cardia and angularis were normal. The endoscope was then withdrawn into distal esophagus Patient had a slightly irregular squamocolumnar junction with 5 mm extension of columnar epithelium into the distal esophagus with no significant esophagitis The remaining distal and proximal esophagus and oropharynx were unremarkable The patient tolerated the procedure well without difficulty. COMPLICATIONS : None SPECIMENS: Duodenal biopsies Gastric biopsies DISPOSITION: Transfer back to the floor Stable PLAN: 1. Await for biopsy result 2. Will place pt on Protonix 40 mg p.o. daily 3. Carafate 1 g p.o. twice a day 4. Resume GI soft diet advance as tolerated 5. Outpatient follow up with me to review results discuss further management including elective colonoscopy 6. DC aspirin NSAIDs smoking alcohol ANDREA HALE MD May 06, 2025 17:02
[2025-05-07] VITALS (8 sets, daily range): BP systolic 100–111; BP diastolic 38–61; PULSE 74–100; RESP 14–19; TEMP 97.6–99.1; O2SAT 93–98
--- NOTE | 2025-05-07 11:39 | DVHPN2 ---
Reviewed: Care Plan, H&P, Labs, Medications, Previous Orders, Radiology Changes from previous H/P or p: No Changes Eyes: No Pain, No Vision change, No Conjunctivae inflammation, No Eyelid inflammation, No Other, No Redness ENT: No Ear pain, No Ear discharge, No Nose pain, No Nose discharge, No Nose congestion, No Mouth pain, No Mouth swelling, No Throat pain, No Throat swelling, No Other Cardiovascular: No Chest Pain, No Palpitations, No Orthopnea, No Paroxysmal Noc. Dyspnea, No Edema, No Lt Headedness, No Other Respiratory: No Cough, No Dry, No Shortness of breath, No SOB with excertion, No Wheezing, No Hemoptysis, No Pleuritic Pain, No Sputum, No Other Gastrointestinal: Nausea, Vomiting, Abdominal Pain; No Diarrhea, No Constipation, No Melena, No Hematochezia, No Other Genitourinary: No Dysuria, No Frequency, No Incontinence, No Hematuria, No Retention, No Other Musculoskeletal: No other, No neck pain, No shoulder pain, No arm pain, No back pain, No hand pain, No leg pain, No foot pain Skin: No Rash, No Lesions, No Jaundice, No Bruising, No Other Objective Vitals Vital Signs Date Time Temp Pulse Resp B/P (MAP) Pulse Ox O2 Delivery O2 Flow Rate FiO2 05/07/25 09:27 97.6 86 18 102/55 (71) 94 97.6 05/06/25 20:00 Room Air* 0 21 Intake/Output Intake and Output 05/07/25 07:00 Intake Total 350 ml Output Total 800 ml Balance -450 ml Intake Oral 200 ml IV Total 150 ml Output Urine Total 800 ml # Voids 3 Medications Current Medications Medications Dose Ordered Sig/Estefany Route Start Time Stop Time Status Last Admin Dose Admin Furosemide 20 mg DAILY IV 05/05/25 10:00 Potassium Chloride 20 meq DAILY PO 05/05/25 10:00 05/07/25 10:17 20 MEQ Pantoprazole Sodium 40 mg DAILY IV 05/05/25 10:00 05/06/25 09:16 40 MG Ondansetron HCl 4 mg Q4HP PRN IV 05/04/25 12:15 Enoxaparin Sodium 40 mg DAILY SC 05/05/25 10:00 05/07/25 10:17 40 MG Morphine Sulfate 2 mg Q4HPRN PRN IV 05/04/25 12:15 Ceftriaxone Sodium 50 ml @ 100 mls/hr DAILY@09 IV 05/05/25 09:00 05/07/25 10:17 100 MLS/HR Metronidazole 100 ml @ 100 mls/hr Q8HR IV 05/04/25 14:00 05/07/25 05:20 100 MLS/HR Sodium Chloride 1,000 ml @ 75 mls/hr [id number] IV 05/04/25 12:15 05/07/25 06:59 75 MLS/HR Acetaminophen/ Hydrocodone Bitart 1 tab Q4HP PRN PO 05/04/25 12:15 05/06/25 21:04 1 TAB Acetaminophen 650 mg Q6HP PRN PO 05/04/25 12:15 05/05/25 13:58 650 MG Laboratory Results Laboratory Tests 05/05/25 05:33 05/05/25 10:50 Urinalysis Test 05/04/25 09:09 Urine Color Yellow (Yellow) Urine Clarity Turbid (Clear) H Urine pH 6.5 (5.0-9.0) Urine Specific [place] 1.009 (1.001-1.035) Urine Protein Negative (Negative) Urine Ketones Negative (Negative) Urine Blood Negative /uL (Negative) Urine Nitrite Negative (Negative) Urine Bilirubin Negative (Negative) Urine Urobilinogen Normal mg/dL (Negative) Urine Leukocyte Esterase 3+ /uL (Negative) Urine RBC 1 /hpf (0 - 4) Urine Microscopic WBC 41 /HPF (0-5) H Urine Squamous Epithelial Cells Few /hpf (<5) Urine Bacteria Few /hpf (None Seen) H Urine Glucose Normal mg/dL (Normal) Microbiology Microbiology Date/Time Source Procedure Growth Status 05/04/25 09:09 Voided Urine Urine Culture - Final Escherichia coli Complete 05/04/25 08:48 Blood Blood Culture - Preliminary NO GROWTH AFTER 72 HOURS OF INCUBATION. Resulted Labs and/or images reviewed: Labs reviewed by me, Image(s) reviewed by me Assessment/Plan Assessment/Plan Acute abdominal pain possibly secondary to diverticulitis: Adriana Serrato GI consult by Dr. Aris Hale appreciated Mild gastritis by EGD by Dr. Aris Hale on 05/06/2025, biopsy result pending Cholelithiasis, cholecystitis ruled out Hepatic steatosis UTI: Blood cultures negative urine cultures growing E coli, continue Rocephin JONATHAN on CKD Acute type hypokalemia: Replace potassium Hypertension Bilateral leg edema , venous ultrasound, cardiology consult, echo Acute Pancreatitis lipase 112 Obesity Time Spent 55 minutes Advanced care planning time 20 minutes Patient is full code Plan discussed with: Patient Date of Service: May 07, 2025 Billing Provider: ROSELINE EASTMAN MD Common Visit Codes: [id number] INP/OBS CARE(HIGH) ROSELINE EASTMAN MD May 07, 2025 11:39
--- NOTE | 2025-05-07 14:43 | DVH ---
Bilateral lower extremity venous duplex Clinical History: Pain Comparison: None Technique: Duplex Doppler evaluation of the deep venous systems of both lower extremities from the common femora l veins to the popliteal veins including color Doppler and spectral/pulsed waveform analysis was perf ormed. Findings: RIGHT SIDE: The common femoral vein demonstrates appropriate compressibility and waveform variability. There is compressibility/patency of the great saphenous vein at the proximal thigh. The femoral vein demonstrates appropriate compressibility and waveform variability. The deep femoral vein demonstrates appropriate compressibility and waveform variability. The popliteal vein demonstrates appropriate compressibility and waveform variability. There is normal compressibility at the tibioperoneal trunk. LEFT SIDE: The common femoral vein demonstrates appropriate compressibility and waveform variability. There is compressibility/patency of the great saphenous vein at the proximal thigh. The femoral vein demonstrates appropriate compressibility and waveform variability. The deep femoral vein demonstrates appropriate compressibility and waveform variability. The popliteal vein demonstrates appropriate compressibility and waveform variability. There is normal compressibility at the tibioperoneal trunk. Impression: No right or left femoropopliteal venous thrombosis. Left popliteal fossa cyst measures 4.1 x 1.8 cm.
--- NOTE | 2025-05-07 14:43 | DVHINCON2 ---
Date Seen: May 07, 2025 Referring Physician MD Rafita Reason for Consultation Bilateral leg edema possible CHF History of Present Illness This is a 69-year-old Kinyarw[place]-speaking female who presented to the emergency room with a chief complaint of abdominal pain. The patient presented with co mplaints of abdominal pain associated with nausea, vomiting, and diarrhea. Cardiology consulted in the setting of bilateral lower extremity edema with primary care team attempting to rule out congestive heart failure. Per patient and family at bedside, she has developed chronic bilateral lower extremity edema for the past two years given poor ambulation secondary to bilateral knee degeneration which is pending surgical procedure at this time. Denies SOB, PND, CORONA, chest pain, palpitations, diaphoresis, or syncopal events. Significant medical history includes hypertension, [id number] diabetes mellitus, vertigo, bilateral knee degeneration, and obesity. Past Medical History Past medical history reviewed. No other significant than mentioned above. Past Surgical History Past surgical history reviewed. No other significant than mentioned above. Family History: Diabetes mellitus G8 MOTHER, Onset:30s - 40 Hypertension G8 FATHER, Onset:50s - 60 Family History Family history reviewed. Social History Denies the use of illicit drugs, alcohol, or tobacco use. Allergies: Coded Allergies: NO KNOWN ALLERGIES (Unverified , 05/04/25) Home Meds Reported Medications Metformin Hydrochloride (Metformin Hcl) 500 Mg Tab, 500 MG PO DAILY, MG 05/04/25 Meclizine Hcl (Meclizine Hcl) 25 Mg Tab, 25 MG PO HSPRN for 30 Days, MG 05/04/25 Atorvastatin Calcium (ATORVASTATIN CALCIUM) 20 Mg Tab, 1 TAB PO HS, TAB 5 Refills 05/04/25 Furosemide (Furosemide) 40 Mg Tab, 40 MG PO DAILY 05/04/25 Hydrochlorothiazide (Hydrochlorothiazide) 25 Mg Tab, 25 MG PO DAILY for 30 Days, MG 05/04/25 Home Meds Home medications reviewed. Review of Systems Constitutional: No symptom reported Ears, Nose, & Throat: No symptom reported Eyes: No symptom reported Neurological: No symptoms reported Pulmonary/Respiratory: No symptom reported Cardiovascular: No symptom reported Gastrointestinal: Abdominal pain, N/V/D Genitourinary: No symptom reported Musculoskeletal: No symptom reported Skin: No symptom reported Psychiatric: No symptom reported Endocrine: No symptom reported Hemotologic/Lymphatic: No symptom reported Vital Signs Vital Signs Date Time Temp Pulse Resp B/P (MAP) Pulse Ox O2 Delivery O2 Flow Rate FiO2 05/07/25 13:00 99.1 84 19 111/58 (75) 95 99.1 05/06/25 20:00 Room Air* 0 21 Physical Exam General Appearance: Cooperative. Well developed. Obese. In no acute distress Head Exam: Normal inspection Neck Exam: Normal inspection. Non-tender. Normal alignment Pulmonary/Respiratory: Chest non-tender. Clear bilateral breath sounds Cardiovascular/Chest: Regular rate and rhythm. S1, S2. Sinus rhythm. No murmurs. No JVD. Peripheral Pulses: 2+ Radial (R). 2+ Radial (L). 2+ Pedal (R). 2+ Pedal (L) Abdominal Exam: Normal bowel sounds. Soft. Ankle Exam: Positive ankle edema Lower extremities: Positive lower extremity edema Neuro/Mental Status: A&O x4. Coherent Thoughts/Psych: Normal thought pattern. Appropriate mood and affect. Good judgement and insight Appearance: In no acute distress Skin Exam: Normal inspection. Normal color. Warm. Dry Labs/Diagnostic Data Labs Test 05/06/25 06:17 05/05/25 10:50 05/05/25 05:33 05/04/25 09:09 Range/Units Prothrombin Time 10.3 9.3-11.8 sec Prothrombin Time INR 0.97 0.9-1.15 Activated Partial Thromboplast Time < 20.0 L 24.5-34.5 SEC Potassium Level 3.4 L 3.5-5.1 mmol/L Magnesium Level 1.7 1.6-2.6 mg/dL White Blood Count 5.9 4.4-10.8 10^3/uL Red Blood Count 3.91 L 4.0-5.20 10^6/uL Hemoglobin 10.6 #L 12.2-16.2 g/dL Hematocrit 32.9 #L 36.0-46.0 % Mean Corpuscular Volume 84.0 80.0-100.0 fL Mean Corpuscular Hemoglobin 27.2 L 28.0-32.0 pg Mean Corpuscular Hemoglobin Concent 32.4 32.0-36.0 g/dL Red Cell Distribution Width 18.4 H 11.8-14.3 % Platelet Count 439 140-450 10^3/uL Mean Platelet Volume 8.2 6.9-10.8 fL Neutrophils (%) (Auto) 52.2 37.0-80.0 % Lymphocytes (%) (Auto) 32.7 10.0-50.0 % Monocytes (%) (Auto) 10.0 0.0-12.0 % Eosinophils (%) (Auto) 4.7 0.0-7.0 % Basophils (%) (Auto) 0.4 0.0-2.0 % Neutrophils # (Auto) 3.1 1.6-8.6 10 ^3/uL Lymphocytes # (Auto) 1.9 0.4-5.4 10 ^3/uL Monocytes # (Auto) 0.6 0-1.3 10 ^3/uL Eosinophils # (Auto) 0.3 0-0.8 10 ^3/uL Basophils # (Auto) 0 0-0.2 10 ^3/uL Nucleated Red Blood Cells 0.2 % Sodium Level 137 # 136-145 mmol/L Chloride Level 103 # 98-107 mmol/L Carbon Dioxide Level 23 20-31 mmol/L Anion Gap 11 5-15 Blood Urea Nitrogen 10 9-23 mg/dL Creatinine 0.98 # 0.550-1.02 mg/dL Glomerular Filtration Rate Calc 62 >90 mL/min BUN/Creatinine Ratio 10.2 10.0-20.0 Serum Glucose 97 74-106 mg/dL Calcium Level 8.6 L 8.7-10.4 mg/dL Total Bilirubin 0.7 0.2-1.0 mg/dL Aspartate Amino Transferase (AST) 26 13-40 U/L Alanine Aminotransferase (ALT) 15 7-40 U/L Alkaline Phosphatase 77 46-116 U/L Total Protein 5.6 L 5.7-8.2 g/dL Albumin 3.3 3.2-4.8 g/dL Urine Color Yellow Yellow Urine Clarity Turbid H Clear Urine pH 6.5 5.0-9.0 Urine Specific [place] 1.009 1.001-1.035 Urine Protein Negative Negative Urine Ketones Negative Negative Urine Blood Negative Negative /uL Urine Nitrite Negative Negative Urine Bilirubin Negative Negative Urine Urobilinogen Normal Negative mg/dL Urine Leukocyte Esterase 3+ Negative /uL Urine RBC 1 0 - 4 /hpf Urine Microscopic WBC 41 H 0-5 /HPF Urine Squamous Epithelial Cells Few <5 /hpf Urine Bacteria Few H None Seen /hpf Urine Glucose Normal Normal mg/dL Test 05/04/25 08:48 05/04/25 08:13 Range/Units Lactic Acid Level 1.4 0.4-2.0 mmol/L Hemoglobin A1c 6.2 H <5.7 % A1C Troponin I High Sensitivity 4 </=34 ng/L B-Type Natriuretic Peptide 46.17 0-100 pg/mL Lipase 112 H 12-53 U/L Microbiology Date/Time Source Procedure Growth Status 05/04/25 09:09 Voided Urine Urine Culture - Final Escherichia coli Complete 05/04/25 08:48 Blood Blood Culture - Preliminary NO GROWTH AFTER 72 HOURS OF INCUBATION. Resulted Assessment Chronic bilateral lower extremity edema Acute abdominal pain Hypertension Dyslipidemia Ajy-rleetas-gkvmijngv diabetes mellitus Obesity Plan/Recommendation (Dr. Sims) Transthoracic echocardiogram revealed LVEF 55% with moderate LVH, normal RV fu nction, and RV enlargement. The patient presents with chronic bilateral lower extremity edema and she is mostly non-ambulatory secondary to bilateral knee degeneration. [place] heart failure diagnostic criteria is negative. Avoid CCBs. Continue with blood work including TSH level with primary care team to follow-up on results. Continue orthopedic follow-up as outpatient given recommendations for possible surgical intervention. There is no further cardiac workup indicated at this time. Thank you for allowing us to participate in this patient's care. Please call if you have any questions or concerns. This medical document was created using an electronic medical record system with voice recognition software and computerized dictation system. Although this document has been carefully reviewed, there might still be some phonetic and typographical errors. Occasional wrong-word or ``sound-alike substitutions may have occurred due to the inherent limitations of voice recognition software. These areas are purely typographical due to imperfections of the software programs and do not reflect any compromise in the patient's medical care. Please read the chart carefully and recognize, using context, where these substitutions have occurred. Plan discussed with: Patient, Other NYHA Physical activity limitations: NA Date of Service: May 07, 2025 Billing Provider: HENRIETTA FREDERICK Cardiology Common Codes: [id number] INP/OBS CARE (High) HENRIETTA FREDERICK May 07, 2025 14:43
[2025-05-07 15:02] LABS: Hematocrit 34.2 % (36.0-46.0); Hemoglobin 11.0 g/dL (12.2-16.2); Mean Corpuscular Hemoglobin 27.3 pg (28.0-32.0); Mean Corpuscular Volume 85.0 fL (80.0-100.0)
[2025-05-07 15:17] LABS: Chloride 106 mmol/L (98-107); Potassium 3.5 mmol/L (3.5-5.1); Sodium 139 mmol/L (136-145)
[2025-05-07 15:18] LABS: Anion Gap 10 (5-15); Carbon Dioxide 23 mmol/L (20-31)
[2025-05-07 15:24] LABS: BUN/Creatinine Ratio 6.0 (10.0-20.0); Blood Urea Nitrogen < 5 mg/dL (9-23); Glucose 125 mg/dL (74-106)
[2025-05-07 15:25] LABS: Calcium 8.3 mg/dL (8.7-10.4); Magnesium 1.2 mg/dL (1.6-2.6)
[2025-05-07] MEDS: MAGNESIUM SULFATE 1GM/100ML 100 ML IV SCH (16:08)
[2025-05-07] MEDS: POTASSIUM CHL 20 Meq TABLET PO ONE (16:08)
[2025-05-07 16:44] LABS: Anisocytosis Slight; Total Cells Counted 100.0 (100)
--- NOTE | 2025-05-07 23:13 | DVHPN2 ---
Progress Note - Dictate Date Seen: May 07, 2025 Medical Necessity Reason Pt with a Central, PICC or Fol: No Subjective No new complaints Patient tolerating diet EGD showed moderate gastritis with erosions vital signs Vital Sign Date Time Temp Pulse Resp B/P (MAP) Pulse Ox O2 Delivery O2 Flow Rate FiO2 05/07/25 21:00 97.9 100 18 100/54 (69) 98 97.9 05/07/25 08:00 Room Air* 0 21 Total Intake and Output 05/06/25 05/06/25 05/07/25 15:00 23:00 07:00 Intake Total 50 ml 100 ml 200 ml Output Total 800 ml Balance 50 ml -700 ml 200 ml medications Current Medications Medications Dose Ordered Sig/Estefany Route Start Time Stop Time Status Last Admin Dose Admin Furosemide 20 mg DAILY IV 05/05/25 10:00 05/07/25 11:41 20 MG Potassium Chloride 20 meq DAILY PO 05/05/25 10:00 05/07/25 10:17 20 MEQ Pantoprazole Sodium 40 mg DAILY IV 05/05/25 10:00 05/07/25 11:42 40 MG Ondansetron HCl 4 mg Q4HP PRN IV 05/04/25 12:15 Enoxaparin Sodium 40 mg DAILY SC 05/05/25 10:00 05/07/25 10:17 40 MG Morphine Sulfate 2 mg Q4HPRN PRN IV 05/04/25 12:15 Ceftriaxone Sodium 50 ml @ 100 mls/hr DAILY@09 IV 05/05/25 09:00 05/07/25 10:17 100 MLS/HR Metronidazole 100 ml @ 100 mls/hr Q8HR IV 05/04/25 14:00 05/07/25 13:21 100 MLS/HR Acetaminophen/ Hydrocodone Bitart 1 tab Q4HP PRN PO 05/04/25 12:15 05/06/25 21:04 1 TAB Acetaminophen 650 mg Q6HP PRN PO 05/04/25 12:15 05/05/25 13:58 650 MG objective General Appearance: Alert, Oriented X3, Cooperative, no distress HEENT: Atraumatic, PERRLA, EOMI Respiratory: Normal air movement Cardiovascular: Normal S1, Other (Bilateral lower extremity edema) Abdominal: Normal bowel sounds, Soft, Other (Generalized tenderness in the abdomen on palpation) Extremities: No clubbing, Other (Bilateral lower extremity +2 pitting edema) Skin: No rashes, No breakdown Neuro: Normal tone laboratory and microbiology Laboratory Tests 05/07/25 14:43 Test 05/07/25 14:43 Range/Units Serum Glucose 125 H 74-106 mg/dL Problems(with codes): (1) Acute pancreatitis (2) CHF (congestive heart failure) (3) Gastritis (4) Acute abdominal pain Prognosis Plan Continue supportive care Cardiology consult and seen and cleared the patient Maintained on Protonix and Carafate DC aspirin NSAIDs Await biopsy results Outpatient follow up in my office in 4-6 weeks after discharge Plan discussed with: Patient ANDREA KELLY MD May 07, 2025 23:13
[2025-05-08] VITALS (8 sets, daily range): BP systolic 90–125; BP diastolic 46–75; PULSE 86–99; RESP 14–18; TEMP 97.5–98.4; O2SAT 95–100
--- NOTE | 2025-05-08 12:21 | DVHPN2 ---
Reviewed: Care Plan, H&P, Labs, Medications, Previous Orders, Radiology Changes from previous H/P or p: No Changes Eyes: No Pain, No Vision change, No Conjunctivae inflammation, No Eyelid inflammation, No Other, No Redness ENT: No Ear pain, No Ear discharge, No Nose pain, No Nose discharge, No Nose congestion, No Mouth pain, No Mouth swelling, No Throat pain, No Throat swelling, No Other Cardiovascular: No Chest Pain, No Palpitations, No Orthopnea, No Paroxysmal Noc. Dyspnea, No Edema, No Lt Headedness, No Other Respiratory: No Cough, No Dry, No Shortness of breath, No SOB with excertion, No Wheezing, No Hemoptysis, No Pleuritic Pain, No Sputum, No Other Gastrointestinal: Nausea, Vomiting, Abdominal Pain; No Diarrhea, No Constipation, No Melena, No Hematochezia, No Other Genitourinary: No Dysuria, No Frequency, No Incontinence, No Hematuria, No Retention, No Other Musculoskeletal: No other, No neck pain, No shoulder pain, No arm pain, No back pain, No hand pain, No leg pain, No foot pain Skin: No Rash, No Lesions, No Jaundice, No Bruising, No Other Objective Vitals Vital Signs Date Time Temp Pulse Resp B/P (MAP) Pulse Ox O2 Delivery O2 Flow Rate FiO2 05/08/25 09:45 100/62 05/08/25 09:20 98.4 86 16 99 98.4 05/07/25 20:00 Room Air* 0 21 Intake/Output Intake and Output 05/08/25 07:00 Intake Total 925 ml Balance 925 ml Intake Oral 725 ml IV Total 200 ml # Voids 9 # Bowel Movements 4 Medications Current Medications Medications Dose Ordered Sig/Estefany Route Start Time Stop Time Status Last Admin Dose Admin Furosemide 20 mg DAILY IV 05/05/25 10:00 05/08/25 09:45 20 MG Potassium Chloride 20 meq DAILY PO 05/05/25 10:00 05/08/25 09:43 20 MEQ Pantoprazole Sodium 40 mg DAILY IV 05/05/25 10:00 05/08/25 09:43 40 MG Ondansetron HCl 4 mg Q4HP PRN IV 05/04/25 12:15 Enoxaparin Sodium 40 mg DAILY SC 05/05/25 10:00 05/08/25 09:45 40 MG Morphine Sulfate 2 mg Q4HPRN PRN IV 05/04/25 12:15 Ceftriaxone Sodium 50 ml @ 100 mls/hr DAILY@09 IV 05/05/25 09:00 05/08/25 08:38 100 MLS/HR Metronidazole 100 ml @ 100 mls/hr Q8HR IV 05/04/25 14:00 05/08/25 05:25 100 MLS/HR Acetaminophen/ Hydrocodone Bitart 1 tab Q4HP PRN PO 05/04/25 12:15 05/06/25 21:04 1 TAB Acetaminophen 650 mg Q6HP PRN PO 05/04/25 12:15 05/05/25 13:58 650 MG Laboratory Results Laboratory Tests 05/07/25 14:43 Chemistry Test 05/07/25 14:43 Calcium Level 8.3 mg/dL (8.7-10.4) L Magnesium Level 1.2 mg/dL (1.6-2.6) L HgA1c, TSH Test 05/07/25 14:43 Thyroid Stimulating Hormone (TSH) 1.41 uIU/mL (0.55-4.78) Urinalysis Test 05/04/25 09:09 Urine Color Yellow (Yellow) Urine Clarity Turbid (Clear) H Urine pH 6.5 (5.0-9.0) Urine Specific [place] 1.009 (1.001-1.035) Urine Protein Negative (Negative) Urine Ketones Negative (Negative) Urine Blood Negative /uL (Negative) Urine Nitrite Negative (Negative) Urine Bilirubin Negative (Negative) Urine Urobilinogen Normal mg/dL (Negative) Urine Leukocyte Esterase 3+ /uL (Negative) Urine RBC 1 /hpf (0 - 4) Urine Microscopic WBC 41 /HPF (0-5) H Urine Squamous Epithelial Cells Few /hpf (<5) Urine Bacteria Few /hpf (None Seen) H Urine Glucose Normal mg/dL (Normal) Microbiology Microbiology Date/Time Source Procedure Growth Status 05/04/25 09:09 Voided Urine Urine Culture - Final Escherichia coli Complete 05/04/25 08:48 Blood Blood Culture - Preliminary NO GROWTH AFTER 72 HOURS OF INCUBATION. Resulted Labs and/or images reviewed: Labs reviewed by me, Image(s) reviewed by me Assessment/Plan Assessment/Plan Acute right upper quadrant abdominal pain gallbladder ultrasound shows gallbladder sludge HIDA scan pending, surgical consult for Dr. Ralph Hale. Possible diverticulitis Rocephin Flagyl GI consult by Dr. Aris Hale appreciated Mild gastritis by EGD by Dr. Aris Hale on 05/06/2025, biopsy result pending Hepatic steatosis UTI: Blood cultures negative urine cultures growing E coli, continue Rocephin JONATHAN on CKD Acute type hypokalemia: Replace potassium Hypertension Chronic Bilateral leg edema , DVT ruled out echo 55 percent ejection fraction cardiology consult by Dr. Sims appreciated Acute Pancreatitis lipase 112 Obesity Time Spent 55 minutes Advanced care planning time 20 minutes Patient is full code Plan discussed with: Patient My Orders Orders - ROSELINE EASTMAN MD Procedure Category Date Status Time Nm Hida Scan NM 05/08/25 Logged 12:12 * Surgical Consult CONS 05/08/25 Transmitted Date of Service: May 08, 2025 Billing Provider: ROSELINE EASTMAN MD Common Visit Codes: [id number] INP/OBS CARE(HIGH) ROSELINE EASTMAN MD May 08, 2025 12:21
--- NOTE | 2025-05-08 16:21 | DVH ---
EXAM: NM NM HIDA SCAN History: Rule out cholecystitis Comparison Study: None TECHNIQUE: Following intravenous administration of 4.5 mCi of Tc-99m mebrofenin (Choletec), dynamic sequential images of the right upper abdomen were acquired for 30 minutes. An additional planar image in the lateral right upper quadrant was also obtained. FINDINGS: The liver demonstrates prompt radiotracer uptake with clearance from blood pool. No focal perfusion d efects were noted. There was prompt excretion of the radiotracer into the biliary tree, without evide nce of biliary dilatation or obstruction. There was prompt filling of the gallbladder. IMPRESSION: 1. No evidence for acute cholecystitis.
--- NOTE | 2025-05-08 18:23 | DVHINCON2 ---
Date of service: May 08, 2025 Family History: Diabetes mellitus G8 MOTHER, Onset:30's - 40 Hypertension G8 FATHER, Onset:50's - 60 Allergies: Coded Allergies: NO KNOWN ALLERGIES (Unverified , 05/04/25) Home Meds Reported Medications Metformin Hydrochloride (Metformin Hcl) 500 Mg Tab, 500 MG PO DAILY, MG 05/04/25 Meclizine Hcl (Meclizine Hcl) 25 Mg Tab, 25 MG PO HSPRN for 30 Days, MG 05/04/25 Atorvastatin Calcium (ATORVASTATIN CALCIUM) 20 Mg Tab, 1 TAB PO HS, TAB 5 Refills 05/04/25 Furosemide (Furosemide) 40 Mg Tab, 40 MG PO DAILY 05/04/25 Hydrochlorothiazide (Hydrochlorothiazide) 25 Mg Tab, 25 MG PO DAILY for 30 Days, MG 05/04/25 Vital Signs Vital Signs Date Time Temp Pulse Resp B/P (MAP) Pulse Ox O2 Delivery O2 Flow Rate FiO2 05/08/25 17:06 97.5 99 14 90/46 (61) 100 97.5 05/08/25 08:30 Nasal Cannula* 3 32 Labs/Diagnostic Data Labs Test 05/07/25 14:43 05/06/25 06:17 05/05/25 05:33 05/04/25 09:09 Range/Units White Blood Count 7.8 # 4.4-10.8 10^3/uL Red Blood Count 4.02 4.0-5.20 10^6/uL Hemoglobin 11.0 L 12.2-16.2 g/dL Hematocrit 34.2 L 36.0-46.0 % Mean Corpuscular Volume 85.0 80.0-100.0 fL Mean Corpuscular Hemoglobin 27.3 L 28.0-32.0 pg Mean Corpuscular Hemoglobin Concent 32.0 32.0-36.0 g/dL Red Cell Distribution Width 18.3 H 11.8-14.3 % Platelet Count 386 140-450 10^3/uL Mean Platelet Volume 8.0 6.9-10.8 fL Neutrophils (%) (Auto) 37.0-80.0 % Lymphocytes (%) (Auto) 10.0-50.0 % Monocytes (%) (Auto) 0.0-12.0 % Basophils (%) (Auto) 0.0-2.0 % Neutrophils # (Auto) 1.6-8.6 10 ^3/uL Lymphocytes # (Auto) 0.4-5.4 10 ^3/uL Monocytes # (Auto) 0-1.3 10 ^3/uL Differential Total Cells Counted 100.0 100 Neutrophils % (Manual) 53 37.0-80.0 Band Neutrophils % (Manual) 0 Lymphocytes % (Manual) 39 10.0-50.0 Monocytes % (Manual) 8 0-12 Eosinophils % (Manual) 0 0-7 Basophils % (Manual) 0 0.0-2.0 Metamyelocytes % (manual) 0 Myelocytes % (Manual) 0 Promyelocytes % (Manual) 0 Blast Cells % (Manual) 0 Reactive Lymphocytes 0 Platelet Estimate Adequate Anisocytosis (manual) Slight Sodium Level 139 136-145 mmol/L Potassium Level 3.5 3.5-5.1 mmol/L Chloride Level 106 98-107 mmol/L Carbon Dioxide Level 23 20-31 mmol/L Anion Gap 10 5-15 Blood Urea Nitrogen < 5 L 9-23 mg/dL Creatinine 0.83 0.550-1.02 mg/dL Glomerular Filtration Rate Calc 76 >90 mL/min BUN/Creatinine Ratio 6.0 L 10.0-20.0 Serum Glucose 125 H 74-106 mg/dL Calcium Level 8.3 L 8.7-10.4 mg/dL Magnesium Level 1.2 L 1.6-2.6 mg/dL Thyroid Stimulating Hormone (TSH) 1.41 0.55-4.78 uIU/mL Prothrombin Time 10.3 9.3-11.8 sec Prothrombin Time INR 0.97 0.9-1.15 Activated Partial Thromboplast Time < 20.0 L 24.5-34.5 SEC Eosinophils (%) (Auto) 4.7 0.0-7.0 % Eosinophils # (Auto) 0.3 0-0.8 10 ^3/uL Basophils # (Auto) 0 0-0.2 10 ^3/uL Nucleated Red Blood Cells 0.2 % Total Bilirubin 0.7 0.2-1.0 mg/dL Aspartate Amino Transferase (AST) 26 13-40 U/L Alanine Aminotransferase (ALT) 15 7-40 U/L Alkaline Phosphatase 77 46-116 U/L Total Protein 5.6 L 5.7-8.2 g/dL Albumin 3.3 3.2-4.8 g/dL Urine Color Yellow Yellow Urine Clarity Turbid H Clear Urine pH 6.5 5.0-9.0 Urine Specific [place] 1.009 1.001-1.035 Urine Protein Negative Negative Urine Ketones Negative Negative Urine Blood Negative Negative /uL Urine Nitrite Negative Negative Urine Bilirubin Negative Negative Urine Urobilinogen Normal Negative mg/dL Urine Leukocyte Esterase 3+ Negative /uL Urine RBC 1 0 - 4 /hpf Urine Microscopic WBC 41 H 0-5 /HPF Urine Squamous Epithelial Cells Few <5 /hpf Urine Bacteria Few H None Seen /hpf Urine Glucose Normal Normal mg/dL Test 05/04/25 08:48 05/04/25 08:13 Range/Units Lactic Acid Level 1.4 0.4-2.0 mmol/L Hemoglobin A1c 6.2 H <5.7 % A1C Troponin I High Sensitivity 4 </=34 ng/L B-Type Natriuretic Peptide 46.17 0-100 pg/mL Lipase 112 H 12-53 U/L Microbiology Date/Time Source Procedure Growth Status 05/04/25 09:09 Voided Urine Urine Culture - Final Escherichia coli Complete 05/04/25 08:48 Blood Blood Culture - Preliminary NO GROWTH AFTER 72 HOURS OF INCUBATION. Resulted Assessment [id number] AFEBRILE VSS ABD SOFT RESOLVING RUQ PAIN US POSSIBLE SLUDGE HIDA SCAN NEG MANAGE CONSERVATIVELY Plan discussed with: Other BRITTNI KELLY MD May 08, 2025 18:23
--- NOTE | 2025-05-08 19:06 | DVHINCON2 ---
DATE OF CONSULTATION: 05/08/2025 HISTORY OF PRESENT ILLNESS: A 69 years old, coming in with upper abdominal pain. I was asked to see her regarding gallbladder issues. She also has an EGD done, gastritis was diagnosed and the ultrasound shows the possibility of gallbladder sludge and HIDA scan also was done. Currently, her pain is resolving. No nausea or vomiting. No hematemesis or melena. No bleeding per rectum. PAST MEDICAL HISTORY: Prediabetes, hypertension, chronic bilateral lower extremity edema, morbid obesity. PAST SURGICAL HISTORY: Negative. PHYSICAL EXAMINATION: VITAL SIGNS: Afebrile, stable signs. HEENT: With no evidence of pallor, cyanosis or jaundice. NECK: Supple and nontender with no thyromegaly or lymphadenopathy. CHEST AND LUNGS: Clear. HEART: Within normal limits. ABDOMEN: Soft, minimally tender. No rebound. EXTREMITIES: Unremarkable. NEUROLOGIC: Intact. CLINICAL IMPRESSION: Clinically, the patient's pain is related to possibly gastritis. At this point, HIDA scan was negative, so does not appear to have acute gallbladder problems that would necessitate acute surgical intervention. PLAN: The plan would be to manage it conservatively and based upon GI evaluation. MD MYLES Adamson/CUCO TID: [id number] RECEIPT: [id number] cc: Ralph Eller MD
--- NOTE | 2025-05-08 23:15 | DVHPN2 ---
Progress Note - Dictate Date Seen: May 08, 2025 Medical Necessity Reason Pt with a Central, PICC or Fol: No Subjective No new complaints Patient tolerating diet EGD showed moderate gastritis with erosions vital signs Vital Sign Date Time Temp Pulse Resp B/P (MAP) Pulse Ox O2 Delivery O2 Flow Rate FiO2 05/08/25 21:00 97.6 94 16 114/64 (81) 98 97.6 05/08/25 08:30 Nasal Cannula* 3 32 Total Intake and Output 05/07/25 05/07/25 05/08/25 15:00 23:00 07:00 Intake Total 325 ml 600 ml Balance 325 ml 600 ml medications Current Medications Medications Dose Ordered Sig/Estefany Route Start Time Stop Time Status Last Admin Dose Admin Furosemide 20 mg DAILY IV 05/05/25 10:00 05/08/25 09:45 20 MG Potassium Chloride 20 meq DAILY PO 05/05/25 10:00 05/08/25 09:43 20 MEQ Pantoprazole Sodium 40 mg DAILY IV 05/05/25 10:00 05/08/25 09:43 40 MG Ondansetron HCl 4 mg Q4HP PRN IV 05/04/25 12:15 Enoxaparin Sodium 40 mg DAILY SC 05/05/25 10:00 05/08/25 09:45 40 MG Morphine Sulfate 2 mg Q4HPRN PRN IV 05/04/25 12:15 Ceftriaxone Sodium 50 ml @ 100 mls/hr DAILY@09 IV 05/05/25 09:00 05/08/25 08:38 100 MLS/HR Metronidazole 100 ml @ 100 mls/hr Q8HR IV 05/04/25 14:00 05/08/25 20:56 100 MLS/HR Acetaminophen/ Hydrocodone Bitart 1 tab Q4HP PRN PO 05/04/25 12:15 05/06/25 21:04 1 TAB Acetaminophen 650 mg Q6HP PRN PO 05/04/25 12:15 05/08/25 23:11 650 MG objective General Appearance: Alert, Oriented X3, Cooperative, no distress HEENT: Atraumatic, PERRLA, EOMI Respiratory: Normal air movement Cardiovascular: Normal S1, Other (Bilateral lower extremity edema) Abdominal: Normal bowel sounds, Soft, Other (Generalized tenderness in the abdomen on palpation) Extremities: No clubbing, Other (Bilateral lower extremity +2 pitting edema) Skin: No rashes, No breakdown Neuro: Normal tone laboratory and microbiology Laboratory Tests 05/07/25 14:43 Test 05/07/25 14:43 Range/Units Serum Glucose 125 H 74-106 mg/dL Problems(with codes): (1) Acute pancreatitis (2) Acute abdominal pain (3) Gastritis (4) CHF (congestive heart failure) Prognosis Plan Advance diet as tolerated PPI plus Carafate DC aspirin NSAIDs smoking alcohol Surgical consult appreciated, HIDA scan negative, no surgical intervention at this time Outpatient follow up with GI Services to discuss elective screening colonoscopy in 4-6 weeks after discharge Plan discussed with: Patient ANDREA KELLY MD May 08, 2025 23:15
[2025-05-09 01:00] VITALS: BP 99/56; PULSE 95; RESP 15; TEMP 98.1; O2SAT 98
[2025-05-09 05:00] VITALS: BP 93/48; PULSE 69; RESP 15; TEMP 97.6; O2SAT 95
[2025-05-09 08:20] VITALS: PULSE 99; RESP 18; O2SAT 97
[2025-05-09 09:00] VITALS: BP 112/72; PULSE 95; RESP 16; TEMP 97.9; O2SAT 97
--- NOTE | 2025-05-09 11:39 | DVHPN2 ---
Reviewed: Care Plan, H&P, Labs, Medications, Previous Orders, Radiology Changes from previous H/P or p: No Changes Eyes: No Pain, No Vision change, No Conjunctivae inflammation, No Eyelid inflammation, No Other, No Redness ENT: No Ear pain, No Ear discharge, No Nose pain, No Nose discharge, No Nose congestion, No Mouth pain, No Mouth swelling, No Throat pain, No Throat swelling, No Other Cardiovascular: No Chest Pain, No Palpitations, No Orthopnea, No Paroxysmal Noc. Dyspnea, No Edema, No Lt Headedness, No Other Respiratory: No Cough, No Dry, No Shortness of breath, No SOB with excertion, No Wheezing, No Hemoptysis, No Pleuritic Pain, No Sputum, No Other Gastrointestinal: Nausea, Vomiting, Abdominal Pain; No Diarrhea, No Constipation, No Melena, No Hematochezia, No Other Genitourinary: No Dysuria, No Frequency, No Incontinence, No Hematuria, No Retention, No Other Musculoskeletal: No other, No neck pain, No shoulder pain, No arm pain, No back pain, No hand pain, No leg pain, No foot pain Skin: No Rash, No Lesions, No Jaundice, No Bruising, No Other Objective Vitals Vital Signs Date Time Temp Pulse Resp B/P (MAP) Pulse Ox O2 Delivery O2 Flow Rate FiO2 05/09/25 10:24 112/72 05/09/25 09:00 97.9 95 16 97 97.9 05/08/25 20:00 Room Air* 0 21 Intake/Output Intake and Output 05/09/25 07:00 Intake Total 2380 ml Output Total 1500 ml Balance 880 ml Intake Oral 2030 ml IV Total 350 ml Output Urine Total 1500 ml # Voids 4 # Bowel Movements 6 Medications Current Medications Medications Dose Ordered Sig/Estefany Route Start Time Stop Time Status Last Admin Dose Admin Furosemide 20 mg DAILY IV 05/05/25 10:00 05/09/25 10:24 20 MG Potassium Chloride 20 meq DAILY PO 05/05/25 10:00 05/09/25 10:23 20 MEQ Pantoprazole Sodium 40 mg DAILY IV 05/05/25 10:00 05/09/25 10:23 40 MG Ondansetron HCl 4 mg Q4HP PRN IV 05/04/25 12:15 Enoxaparin Sodium 40 mg DAILY SC 05/05/25 10:00 05/09/25 10:20 40 MG Morphine Sulfate 2 mg Q4HPRN PRN IV 05/04/25 12:15 Ceftriaxone Sodium 50 ml @ 100 mls/hr DAILY@09 IV 05/05/25 09:00 05/09/25 10:24 100 MLS/HR Metronidazole 100 ml @ 100 mls/hr Q8HR IV 05/04/25 14:00 05/09/25 04:55 100 MLS/HR Acetaminophen/ Hydrocodone Bitart 1 tab Q4HP PRN PO 05/04/25 12:15 05/06/25 21:04 1 TAB Acetaminophen 650 mg Q6HP PRN PO 05/04/25 12:15 05/09/25 10:41 650 MG Laboratory Results Laboratory Tests 05/07/25 14:43 Urinalysis Test 05/04/25 09:09 Urine Color Yellow (Yellow) Urine Clarity Turbid (Clear) H Urine pH 6.5 (5.0-9.0) Urine Specific [place] 1.009 (1.001-1.035) Urine Protein Negative (Negative) Urine Ketones Negative (Negative) Urine Blood Negative /uL (Negative) Urine Nitrite Negative (Negative) Urine Bilirubin Negative (Negative) Urine Urobilinogen Normal mg/dL (Negative) Urine Leukocyte Esterase 3+ /uL (Negative) Urine RBC 1 /hpf (0 - 4) Urine Microscopic WBC 41 /HPF (0-5) H Urine Squamous Epithelial Cells Few /hpf (<5) Urine Bacteria Few /hpf (None Seen) H Urine Glucose Normal mg/dL (Normal) Microbiology Microbiology Date/Time Source Procedure Growth Status 05/04/25 09:09 Voided Urine Urine Culture - Final Escherichia coli Complete 05/04/25 08:48 Blood Blood Culture - Final NO GROWTH AFTER 5 DAYS OF INCUBATION. Complete Labs and/or images reviewed: Labs reviewed by me, Image(s) reviewed by me Assessment/Plan Assessment/Plan Acute right upper quadrant abdominal pain gallbladder ultrasound shows gallbladder sludge HIDA scan negative, surgical consult for Dr. Ralph Hale appreciated, advised nonsurgical case and advised conservative management Possible diverticulitis Rocephin Flagyl GI consult by Dr. Aris Hale appreciated Mild gastritis by EGD by Dr. Aris Hale on 05/06/2025, biopsy result pending Hepatic steatosis UTI: Blood cultures negative urine cultures growing E coli, continue Rocephin JONATHAN on CKD Acute type hypokalemia: Replace potassium Hypertension Chronic Bilateral leg edema , DVT ruled out echo 55 percent ejection fraction cardiology consult by Dr. Sims appreciated Mild Pancreatitis lipase 112 Obesity Time Spent 55 minutes Advanced care planning time 20 minutes Patient is full code Plan discussed with: Patient My Orders Orders - ROSELINE EASTMAN MD Procedure Category Date Status Time Nm Hida Scan NM 05/08/25 Resulted 12:12 * Surgical Consult CONS 05/08/25 Transmitted Date of Service: May 09, 2025 Billing Provider: ROSELINE EASTMAN MD Common Visit Codes: [id number] INP/OBS CARE(HIGH) ROSELINE EASTMAN MD May 09, 2025 11:38
--- NOTE | 2025-05-09 11:43 | DVHDS2 ---
Discharge Summary Date of Admission May 04, 2025 at 11:28 Date of Discharge: May 09, 2025 Admitting Diagnosis Abdominal pain Wounds: EGD Labs/Diagnostic Data: Laboratory Results Test 05/07/25 14:43 05/06/25 06:17 05/05/25 05:33 05/04/25 09:09 White Blood Count 7.8 10^3/uL (4.4-10.8) Red Blood Count 4.02 10^6/uL (4.0-5.20) Hemoglobin 11.0 g/dL (12.2-16.2) Hematocrit 34.2 % (36.0-46.0) Mean Corpuscular Volume 85.0 fL (80.0-100.0) Mean Corpuscular Hemoglobin 27.3 pg (28.0-32.0) Mean Corpuscular Hemoglobin Concent 32.0 g/dL (32.0-36.0) Red Cell Distribution Width 18.3 % (11.8-14.3) Platelet Count 386 10^3/uL (140-450) Mean Platelet Volume 8.0 fL (6.9-10.8) Neutrophils (%) (Auto) % (37.0-80.0) Lymphocytes (%) (Auto) % (10.0-50.0) Monocytes (%) (Auto) % (0.0-12.0) Basophils (%) (Auto) % (0.0-2.0) Neutrophils # (Auto) 10 ^3/uL (1.6-8.6) Lymphocytes # (Auto) 10 ^3/uL (0.4-5.4) Monocytes # (Auto) 10 ^3/uL (0-1.3) Differential Total Cells Counted 100.0 (100) Neutrophils % (Manual) 53 (37.0-80.0) Band Neutrophils % (Manual) 0 Lymphocytes % (Manual) 39 (10.0-50.0) Monocytes % (Manual) 8 (0-12) Eosinophils % (Manual) 0 (0-7) Basophils % (Manual) 0 (0.0-2.0) Metamyelocytes % (manual) 0 Myelocytes % (Manual) 0 Promyelocytes % (Manual) 0 Blast Cells % (Manual) 0 Reactive Lymphocytes 0 Platelet Estimate Adequate Anisocytosis (manual) Slight Sodium Level 139 mmol/L (136-145) Potassium Level 3.5 mmol/L (3.5-5.1) Chloride Level 106 mmol/L (98-107) Carbon Dioxide Level 23 mmol/L (20-31) Anion Gap 10 (5-15) Blood Urea Nitrogen < 5 mg/dL (9-23) Creatinine 0.83 mg/dL (0.550-1.02) Glomerular Filtration Rate Calc 76 mL/min (>90) BUN/Creatinine Ratio 6.0 (10.0-20.0) Serum Glucose 125 mg/dL (74-106) Calcium Level 8.3 mg/dL (8.7-10.4) Magnesium Level 1.2 mg/dL (1.6-2.6) Thyroid Stimulating Hormone (TSH) 1.41 uIU/mL (0.55-4.78) Prothrombin Time 10.3 sec (9.3-11.8) Prothrombin Time INR 0.97 (0.9-1.15) Activated Partial Thromboplast Time < 20.0 SEC (24.5-34.5) Eosinophils (%) (Auto) 4.7 % (0.0-7.0) Eosinophils # (Auto) 0.3 10 ^3/uL (0-0.8) Basophils # (Auto) 0 10 ^3/uL (0-0.2) Nucleated Red Blood Cells 0.2 % Total Bilirubin 0.7 mg/dL (0.2-1.0) Aspartate Amino Transferase (AST) 26 U/L (13-40) Alanine Aminotransferase (ALT) 15 U/L (7-40) Alkaline Phosphatase 77 U/L (46-116) Total Protein 5.6 g/dL (5.7-8.2) Albumin 3.3 g/dL (3.2-4.8) Urine Color Yellow (Yellow) Urine Clarity Turbid (Clear) Urine pH 6.5 (5.0-9.0) Urine Specific [place] 1.009 (1.001-1.035) Urine Protein Negative (Negative) Urine Ketones Negative (Negative) Urine Blood Negative /uL (Negative) Urine Nitrite Negative (Negative) Urine Bilirubin Negative (Negative) Urine Urobilinogen Normal mg/dL (Negative) Urine Leukocyte Esterase 3+ /uL (Negative) Urine RBC 1 /hpf (0 - 4) Urine Microscopic WBC 41 /HPF (0-5) Urine Squamous Epithelial Cells Few /hpf (<5) Urine Bacteria Few /hpf (None Seen) Urine Glucose Normal mg/dL (Normal) Test 05/04/25 08:48 05/04/25 08:13 Lactic Acid Level 1.4 mmol/L (0.4-2.0) Hemoglobin A1c 6.2 % A1C (<5.7) Troponin I High Sensitivity 4 ng/L (</=34) B-Type Natriuretic Peptide 46.17 pg/mL (0-100) Lipase 112 U/L (12-53) Other Laboratory Tests 05/07/25 14:43 Brief Hx & Hospital Course: 69-year-old female with a history of hypotension chronic bilateral leg edema obesity came in complaining of right upper quadrant abdominal pain. Gallbladder ultrasound showed gallbladder sludge. HIDA scan negative surgical consult by Dr. Ralph Hale advised nonsurgical case and felt the pain probably because of gastritis. GI consult by Dr. Aris Hale EGD showed mild gastritis treated with the pantoprazole biopsy result pending patient also had UTI blood cultures negative urine cultures growing E coli treated with Rocephin DVT ruled out echo 55 percent ejection fraction cardiology consult with Dr. Horan mild pancreatitis with a lipase of 112 which has resolved. At the time of discharge patient is tolerating regular diet stable vital signs being discharged home. Prescription transmitted to the pharmacy. Consults/Reason for consult GI Dr. Aris Hale Surgeon Dr. Ralph Hale Operations or Procedures EGD Condition at Discharge: Fair Final Diagnosis/Problems List Acute right upper quadrant abdominal pain gallbladder ultrasound shows gallbladder sludge HIDA scan negative, surgical consult for Dr. Ralph Hale appreciated, advised nonsurgical case and advised conservative management Possible diverticulitis Rocephin Flagyl GI consult by Dr. Aris Hale appreciated Mild gastritis by EGD by Dr. Aris Hale on 05/06/2025, biopsy result pending Hepatic steatosis UTI: Blood cultures negative urine cultures growing E coli, continue Rocephin JONATHAN on CKD Acute type hypokalemia: Replace potassium Hypertension Chronic Bilateral leg edema , DVT ruled out echo 55 percent ejection fraction cardiology consult by Dr. Sims appreciated Mild Pancreatitis lipase 112 Obesity Discharge Disposition: Home Discharge Instruct/Medications Diet: Regular Activity: Light activity Follow Up/Referral: Follow up with your primary doctor Follow up with GI Dr. Aris Hale in 10 days for the biopsy result Resume all previous home medications Use new medications as per Medications: Transmitted to pharmacy Scheduled Atorvastatin Calcium (Atorvastatin Calcium), 1 TAB PO HS, (Reported) Furosemide (Furosemide), 40 MG PO DAILY, (Reported) Hydrochlorothiazide (Hydrochlorothiazide), 25 MG PO DAILY, (Reported) Meclizine Hcl (Meclizine Hcl), 25 MG PO HSPRN, (Reported) Metformin Hydrochloride (Metformin Hcl), 500 MG PO DAILY, (Reported) 39 (Time taken for discharge summary 39 minutes) Discharge Statement: "Patient was advised to return to the ER or call 911 if any headaches, dizziness, shortness of breath, chest pain, abdominal pain, bleeding, fevers, or worsening of medical condition. Patient was counseled about treatment plan, medications, possible side effects, patientverbalized understanding. All questions were answered to the best of my ability. This discharge took greater then 30 minutes in planning, reviewing documentation, counseling the patient, and discussing with other team members." ASSESSMENT ASSESSMENT Hospital Course Uneventful Assessment Acute right upper quadrant abdominal pain gallbladder ultrasound shows gallbladder sludge HIDA scan negative, surgical consult for Dr. Ralph Hale appreciated, advised nonsurgical case and advised conservative management Possible diverticulitis Rocephin Flagyl GI consult by Dr. Aris Hale appreciated Mild gastritis by EGD by Dr. Aris Hale on 05/06/2025, biopsy result pending Hepatic steatosis UTI: Blood cultures negative urine cultures growing E coli, continue Rocephin JONATHAN on CKD Acute type hypokalemia: Replace potassium Hypertension Chronic Bilateral leg edema , DVT ruled out echo 55 percent ejection fraction cardiology consult by Dr. Sims appreciated Mild Pancreatitis lipase 112 Obesity Date of Service: May 09, 2025 Billing Provider: ROSELINE EASTMAN MD Common Visit Codes: [id number] INP/OBS CARE(HIGH), 56145-HSP/OBS DISCH DAY >30min ROSELINE EASTMAN MD May 09, 2025 11:43
[2025-05-09] MEDS ORDERED: LEVO500T91 PO (11:45)
[2025-05-09] MEDS ORDERED: PANT40T PO (11:45)
[2025-05-09] MEDS ORDERED: SUCR1TAB31 PO (11:45)
[2025-05-09 13:00] VITALS: BP 106/69; PULSE 99; RESP 18; TEMP 97.9; O2SAT 100
[2025-05-09 13:07] VITALS: BP 112/72; PULSE 95; RESP 16; TEMP 97.9; O2SAT 97
--- NOTE | 2025-05-09 22:02 | DVHPN2 ---
Progress Note - Dictate Date Seen: May 09, 2025 (Late entry Time of visit 1:00 p.m.) Medical Necessity Reason Pt with a Central, PICC or Fol: No Subjective No new complaints Patient tolerating diet EGD showed moderate gastritis with erosions vital signs Vital Sign Date Time Temp Pulse Resp B/P (MAP) Pulse Ox O2 Delivery O2 Flow Rate FiO2 05/09/25 13:07 97.9 95 16 97 05/09/25 13:00 106/69 (81) 05/09/25 08:20 Room Air* 0 21 Total Intake and Output 05/08/25 05/08/25 05/09/25 15:00 23:00 07:00 Intake Total 50 ml 1230 ml 1100 ml Output Total 850 ml 650 ml Balance 50 ml 380 ml 450 ml objective General Appearance: Alert, Oriented X3, Cooperative, no distress HEENT: Atraumatic, PERRLA, EOMI Respiratory: Normal air movement Cardiovascular: Normal S1, Other (Bilateral lower extremity edema) Abdominal: Normal bowel sounds, Soft, Other (Generalized tenderness in the abdomen on palpation) Extremities: No clubbing, Other (Bilateral lower extremity +2 pitting edema) Skin: No rashes, No breakdown Neuro: Normal tone laboratory and microbiology Laboratory Tests 05/07/25 14:43 Test 05/07/25 14:43 Range/Units Serum Glucose 125 H 74-106 mg/dL Problems(with codes): (1) Acute pancreatitis (2) CHF (congestive heart failure) (3) Gastritis (4) Acute abdominal pain (5) Gallbladder sludge Prognosis Plan Discharge planning is in progress Advance diet as tolerated PPI plus Carafate DC aspirin NSAIDs smoking alcohol Surgical consult appreciated, HIDA scan negative, no surgical intervention at this time Outpatient follow up with GI Services to discuss elective screening colonoscopy in 4-6 weeks after discharge Plan discussed with: Patient ANDREA KELLY MD May 09, 2025 22:02
== END 2025-05-09 15:05 | disposition home or self-care (01) | DRG 391 ==
LOC: ER 07:28 → EDBD 07:28 → OVERFLOW 11:28 → ER 12:04 → WEST WING 13:14
PROVIDERS: ADMIT Family Medicine; ATTEND Family Medicine
PROC: 0DB68ZX Excision of Stomach, Via Natural or Artificial Opening Endoscopic, Diagnostic (ICD-10-PCS; 2025-05-06)
PROC: 0DB98ZX Excision of Duodenum, Via Natural or Artificial Opening Endoscopic, Diagnostic (ICD-10-PCS; principal; 2025-05-06 16:09)
DX: K29.00 Acute gastritis without bleeding (principal); K85.90 Acute pancreatitis without necrosis or infection, unspecified; E87.1 Hypo-osmolality and hyponatremia; N17.9 Acute kidney failure, unspecified; I13.0 Hypertensive heart and chronic kidney disease with heart failure and stage 1 through stage 4 chronic kidney disease, or unspecified chronic kidney disease; K57.32 Diverticulitis of large intestine without perforation or abscess without bleeding; E87.6 Hypokalemia; N18.32 Chronic kidney disease, stage 3b; Z68.38 Body mass index [BMI] 38.0-38.9, adult; E66.01 Morbid (severe) obesity due to excess calories; I50.9 Heart failure, unspecified; K76.0 Fatty (change of) liver, not elsewhere classified; R16.0 Hepatomegaly, not elsewhere classified; E11.22 Type 2 diabetes mellitus with diabetic chronic kidney disease; B96.20 Unspecified Escherichia coli [E. coli] as the cause of diseases classified elsewhere; E78.5 Hyperlipidemia, unspecified; K82.8 Other specified diseases of gallbladder; Z79.84 Long term (current) use of oral hypoglycemic drugs; Z82.49 Family history of ischemic heart disease and other diseases of the circulatory system; Z83.3 Family history of diabetes mellitus; K29.80 Duodenitis without bleeding
CPT/HCPCS: 36415; 43239; 71045; 74176; 76705; 78226; 80048; 80053; 81001; 83036; 83605; 83690; 83735; 83880; 84132; 84443; 84484; 85007; 85025; 85027; 85610; 85730; 86850; 86900; 86901; 87040; 87045; 87086; 87088; 87186; 93005; 93306; 93970; 96365; G0378; J2250; J2405; J2470; J3490